=== PATIENT | male | born 1975 | race Caucasian/White ===

== ENCOUNTER → 2017-11-20 14:00 | Outpatient (CLI) | payer OTHER, SELFPAY | DX: Z23 Encounter for immunization (principal) | CPT/HCPCS: 90471; 90686 ==

== ENCOUNTER 2017-12-27 09:10 | Emergency (ER) | payer OTHER, SELFPAY ==
--- NOTE | 2017-12-27 09:11 | ED_ITS ---
HPI - General Adult General Chief complaint: Syncope Stated complaint: almost fainted / high blood pressure Time Seen by Provider: 12/27/17 09:11 Source: patient Mode of arrival: ambulatory Limitations: no limitations History of Present Illness HPI narrative: 42-year-old male sent over from clinic. 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 He denies any other symptoms at the time to include chest pain, palpitations, headache, vision changes, vertigo symptoms. He did state that at some point after the onset of the symptoms he did get some tingling and coolness in bilateral extremities. He states that except for his hands feeling cool all of his symptoms have completely resolved by the time he arrived here in the emergency department. Related Data Allergies Allergy/AdvReac Type Severity Reaction Status Date / Time No Known Drug Allergies Allergy Verified 12/27/17 09:35 Review of Systems Constitutional Denies fatigue, Denies fever(s) and Denies headache(s) Eyes Denies diplopia ENT Ears, Nose, Mouth, and Throat: Denies vertigo, Denies dizziness, Denies headache (s) and Reports disequilibrium Cardiovascular Denies chest pain, Denies syncope, Denies rapid heart rate, Denies irregular heart rhythm, Reports lightheadedness, Denies palpitations, Denies dyspnea and Denies slow heart rate Respiratory Denies dyspnea Gastrointestinal Gastrointestinal: Denies abdominal pain, Denies nausea and Denies vomiting Musculoskeletal Comments: Bilateral cool hands Integumentary/Breasts Denies lesions and Denies rash Neurologic Denies confusion, Denies vertigo, Denies dizziness, Denies syncope, Denies headache(s), Denies focal weakness, Denies convulsions and Reports disequilibrium Psychiatric Denies confusion Endocrine Denies fatigue and Denies palpitations PFSH Medical History Healthy adult (Acute) Surgical History No pertinent past surgical history (Acute) Social History Smoking Status: Never smoker Exam Initial Vital Signs Initial Vital Signs: Vital Signs Temperature 98.1 F 12/27/17 09:12 Pulse Rate 63 12/27/17 09:12 Respiratory Rate 18 12/27/17 09:12 Blood Pressure 159/86 H 12/27/17 09:12 Pulse Oximetry 99 12/27/17 09:12 Const General: cooperative, healthy appearing, comfortable, well developed, well groomed and No acute distress Orientation: alert and awake [facility] Head: normal to inspection and normocephalic Resp Effort & Inspection: normal respiratory effort Auscultation: clear to auscultation bilaterally Cardio Rate: regular rate Rhythm: regular rhythm Heart Sounds: no murmurs Pulses: radial pulses present GI Inspection: non-distended Palpation: soft Skin Lesions: no lesions Rashes: no rashes Neuro General: alert, awake and oriented x3 Cognition: normal cognition Speech: speech normal Gait: normal gait Extrem General: normal to inspection, capillary refill normal and No edema Psych Appearance: grossly normal and well kempt Course Orders Ordered: ED Orders 12/27/17 09:14 EKG-12 Lead Stat 12/27/17 09:58 Complete Blood Count AUTO DIFF Stat Comprehensive Metabolic Panel Stat Lipase Stat Discontinued Medications Sodium Chloride (Normal Saline 0.9%) 1,000 mls @ 1,000 mls/hr IV BOLUS ONE Stop: 12/27/17 10:28 Vital Signs - 8 hr 12/27/17 09:12 Temperature 98.1 F Pulse Rate 63 Respiratory Rate 18 Blood Pressure 159/86 H Pulse Oximetry 99 Medical Decision Making Lab Data Lab results reviewed: Yes I reviewed the patient's lab results. Result diagrams: 12/27/17 09:58 12/27/17 09:58 Lab Results 12/27/17 12/27/17 Range/Units 09:58 09:58 WBC 5.5 (4.5-11.0) X10^3/uL RBC 4.59 (4.5-5.9) X10^6/uL Hgb 14.3 (13.5-17.5) g/dL Hct 40.7 L (41-53) % MCV 88.9 (80-100) fL MCH 31.1 (26-34) PG MCHC 35.0 (30-36) % RDW 13.0 (11.6-14.8) % Plt Count 226 (150-400) X10^3/uL Neut % (Auto) 63.9 (50-75) % Lymph % (Auto) 22.8 L (25-40) % [place] % (Auto) 10.2 (3-14) % Eos % (Auto) 2.3 (2-4) % Baso % (Auto) 0.8 (0-2) % Neut # (Auto) 3500 (7244-0950) /uL Sodium 143 (137-145) mmol/L Potassium 4.0 (3.4-5.1) mmol/L Chloride 104 (98-107) mmol/L Carbon Dioxide 30 (22-32) mmol/L BUN 12 (9-20) mg/dL Creatinine 1.00 (0.66-1.25) mg/dL Estimated GFR > 60.0 (>60) mL/min BUN/Creatinine Ratio 12.0 (6-22) Glucose 93 (70-100) mg/dL Calcium 9.3 (8.4-10.2) mg/dL Total Bilirubin 0.5 (0.2-1.3) mg/dL AST 22 (17-59) IU/L ALT 31 (21-72) IU/L Alkaline Phosphatase 69 (38-126) U/L Total Protein 7.3 (6.3-8.2) g/dL Albumin 4.3 (3.5-5.0) g/dL Globulin 3.0 (1.7-4.1) g/dL Albumin/Globulin Ratio 1.4 (1.0-2.8) Lipase 70 (23-300) U/L ECG Data Attestation: I personally reviewed and interpreted this ECG as follows: Prior ECG tracings: not available for review Interpretation: sinus rhythm ventricular rate 88 normal axis Normal QRS normal QTC no ST T wave changes MDM Narrative Medical decision making narrative: patient with an improvement/ resolution of his symptoms since being here in the emergency department. His EKG is unremarkable. His labs are unremarkable. His blood pressure has returned to normal. Symptoms are consistent with vasovagal. have low suspicion for CVA/ TIA. Patient was standing at the time of the symptoms. Low suspicion for orthostatic hypotension. Offered patient fluids here in the emergency department however he stated that he would hydrate by mouth which is not unreasonable. Will hold on further workup for now. Patient given return precautions. Discharge Plan Departure Patient Disposition: Home Clinical Impression: Pre-syncope Instructions: DI for Dizziness-Nonvertigo Activity Restrictions/Additional Instructions: make sure you push fluids over the next day. You EKG was normal. Your labs are unremarkable. Return to the emergency department for any new or worsening symptoms
[2017-12-27 09:12] VITALS: BP 159/86; PULSE 63; RESP 18; TEMP 36.7; O2SAT 99; BMI 25.1
[2017-12-27 09:45] VITALS: BP 131/89; PULSE 75; RESP 16; O2SAT 100
[2017-12-27 10:05] VITALS: BP 125/79; PULSE 75; RESP 16; O2SAT 100
[2017-12-27 10:06] LABS: Add Manual Diff / Slide Review NO; Basophils Percent Auto 0.8 % (0-2); Eosinophils Percent Auto 2.3 % (2-4); Hematocrit 40.7 % (41-53); Hemoglobin 14.3 g/dL (13.5-17.5); Lymphocytes Percent Auto 22.8 % (25-40); Mean Corpuscular Hemoglobin 31.1 PG (26-34); Mean Corpuscular Volume 88.9 fL (80-100); Monocytes Percent Auto 10.2 % (3-14); Neutrophils Absolute Auto 3500 /uL (3000-5900); Neutrophils Percent Auto 63.9 % (50-75); Platelet Count 226 X10^3/uL (150-400); Red Blood Cell Count 4.59 X10^6/uL (4.5-5.9); White Blood Cell Count 5.5 X10^3/uL (4.5-11.0)
[2017-12-27 10:17] LABS: Alanine Aminotransferase 31 IU/L (21-72); Albumin 4.3 g/dL (3.5-5.0); Albumin Globulin Ratio 1.4 (1.0-2.8); Alkaline Phosphatase 69 U/L (38-126); Aspartate Aminotransferase 22 IU/L (17-59); Bilirubin Total 0.5 mg/dL (0.2-1.3); Blood Urea Nitrogen 12 mg/dL (9-20); Calcium 9.3 mg/dL (8.4-10.2); Carbon Dioxide 30 mmol/L (22-32); Chloride 104 mmol/L (98-107); Estimated Glomerular Filt Rate > 60.0 mL/min (>60); Glucose 93 mg/dL (70-100); HEMOLYSIS < 15 (0-50); Lipase 70 U/L (23-300); Sodium 143 mmol/L (137-145); Total Protein 7.3 g/dL (6.3-8.2)
== END 2017-12-27 10:41 | disposition home or self-care (01) ==
PROVIDERS: Emergency Provider Emergency Medicine
DX: R55 Syncope and collapse (principal)
CPT/HCPCS: 36415; 80053; 83690; 85025; 93005; 93010; 99282; 99284

== ENCOUNTER 2018-02-01 22:43 | Emergency (ER) | payer OTHER, SELFPAY ==
[2018-02-01 22:48] VITALS: BP 144/81; PULSE 92; RESP 20; TEMP 36.6; O2SAT 100
--- NOTE | 2018-02-01 22:58 | PC.NURSE ---
pt c/o left arm numbness and tingling intermittent for the past 3 days. today sensation was concerning because it included tightness to left neck and chest. tightness radiated into back.
--- NOTE | 2018-02-01 23:17 | DI.CT.S_ITS ---
PROCEDURE: CT ANGIO CHEST ABDOMEN INDICATIONS: near syncope, fullness neck, arm numb, back pain TECHNIQUE: Precontrast 5 mm thick sections acquired from the lung apices to the iliac crests. After the administration of intravenous contrast, 2.5 mm thick sections again acquired from the lung apices to the iliac crests. 10 mm maximum intensity projection (MIP) oblique sagittal and coronal reformats were then acquired. For radiation dose reduction, the following was used: automated exposure control. COMPARISON: None. FINDINGS: Image quality: Excellent. AORTA: No evidence of aortic dissection, aneurysm, nor stenosis. CHEST: Lungs and pleura: No acute airspace opacities. No pleural effusions or pneumothorax. Central and peripheral airways are patent and normal in caliber. Mediastinum: Heart size is normal. No pericardial effusion. No mediastinal or hilar adenopathy by size criteria. Central pulmonary arteries are normal in size. Esophagus is normal in caliber. No hiatal hernias. Bones and chest wall: No axillary adenopathy by size criteria. Thyroid gland is within normal limits. No suspicious bony lesions. No vertebral body compression fractures. ABDOMEN: Vasculature: Celiac trunk and mesenteric arteries are patent. Renal arteries are also patent. Solid organs: Liver is normal in size and enhancement. Gallbladder is partially contracted. Biliary system is non dilated. Pancreas enhances normally. Spleen is normal in size and enhancement. No adrenal nodules. Both kidneys are normal in size and enhancement, without hydronephrosis. Peritoneum and bowel: No free fluid or air. Bowel loops are normal in caliber and wall thickness. Nodes and vessels: No retroperitoneal or mesenteric adenopathy by size criteria. Inferior vena cava is normal in morphology. Bones: No suspicious bony lesions. No vertebral body compression fractures. Miscellaneous: No ventral hernias. IMPRESSION: No acute process and no evidence of aortic dissection, nor aneurysm. Concordant with preliminary interpretation. Dictated by: Mikey Cano M.D. on 02/02/2018 at 8:23 Approved by: Mikey Cano M.D. on 02/02/2018 at 8:25
--- NOTE | 2018-02-01 23:20 | ED.EXTPRO ---
HPI - Extremity Problem General Chief complaint: Extremity Problem,Nontraumatic Stated complaint: LEFT ARM NUMBNESS Time Seen by Provider: 02/01/18 23:16 Source: patient Mode of arrival: ambulatory Limitations: no limitations History of Present Illness HPI Narrative: 42-year-old nonsmoker with no significant medical history presents to the emergency department with a constellation of symptoms which have become increasingly concerning. About 6 weeks ago the patient started noticing some discomfort in his left axilla followed by some radiation of numbness and tingling down his left arm to his finger tips his 4th and 5th fingers. He denies any specific injury and reports no weakness. Additionally the patient has felt some fullness in his neck and throat and thinks may be on occasion food has become stuck but he has no ongoing or chronic trouble and denies any trouble handling his secretions. Additionally the patient was seen and evaluated in our emergency department a few weeks ago for a near syncopal episode which was unprovoked. Finally the patient has had some discomfort in his left posterior chest in the absence shortness of breath, fever, chills, cough. MD Complaint: other Onset (ago): week(s) Pain Consistency: intermittent Location: left Radiation: distal Relieving factors: nothing Exacerbating factors: nothing Associated symptoms: other Related Data Allergies Allergy/AdvReac Type Severity Reaction Status Date / Time No Known Drug Allergies Allergy Verified 12/27/17 09:35 Review of Systems Review of Systems All systems reviewed & are unremarkable except as noted in HPI and below Constitutional Denies chills, Denies fever(s), Denies lethargy and Denies weakness Eyes Denies change in vision, Denies eye discharge, Denies irritation and Denies loss of vision ENT Ears, Nose, Mouth, and Throat: Denies change in voice, Denies neck pain and Denies sore throat Cardiovascular Reports syncope, Denies irregular heart rhythm, Denies lightheadedness, Denies palpitations, Denies dyspnea, Denies dyspnea on exertion and Denies orthopnea Comments: Posterior chest pain Respiratory Denies cough, Denies dyspnea, Denies dyspnea on exertion and Denies wheezing Gastrointestinal Gastrointestinal: Denies abdominal pain, Denies change in bowel habits, Denies diarrhea, Denies nausea and Denies vomiting Genitourinary Denies hematuria, Denies flank pain, Denies urinary incontinence and Denies urinary urgency Musculoskeletal Denies neck pain and Reports tingling Integumentary/Breasts Denies pruritus, Denies erythema, Denies rash and Denies wounds Neurologic Denies confusion, Reports syncope, Denies loss of vision, Reports tingling and Denies weakness Psychiatric Denies anxiety, Denies confusion, Denies depression, Denies homicidal ideation and Denies suicidal ideation Endocrine Denies palpitations Hematologic/Lymphatic Denies easy bruising Allergic/Immunologic Denies wheezing [facility] Medical History Healthy adult (Acute) Surgical History No pertinent past surgical history (Acute) Social History Smoking Status: Never smoker Exam Narrative Exam Narrative: GENERAL: This is a well-nourished, well-developed patient, in mild distress. HEAD: Atraumatic. Normocephalic. No temporal or scalp tenderness. EYES: Pupils equal round and reactive. Extraocular motions intact. No scleral icterus. No injection or drainage. ENT: Nose without bleeding, purulent drainage or septal hematoma. Throat without erythema, tonsillar hypertrophy or exudate. Uvula midline. Airway patent. NECK: Trachea midline. No JVD or lymphadenopathy. Supple, nontender, no meningeal signs. CARDIOVASCULAR: Regular rate and rhythm without murmurs, gallops, or rubs. RESPIRATORY: Clear to auscultation. Breath sounds equal bilaterally. No wheezes, rales, or rhonchi. GASTROINTESTINAL: Abdomen soft, non-tender, nondistended. No hepato-splenomegaly, or palpable masses. No guarding. EXTREMITIES: No clubbing, cyanosis, or edema. No joint tenderness, effusion, or edema noted. BACK: Nontender without deformity or crepitance. No flank tenderness. NEURO: AOx3. SKIN: No rash or erythema. Initial Vital Signs Initial Vital Signs: Vital Signs Temperature 97.8 F 02/01/18 22:48 Pulse Rate 92 H 02/01/18 22:48 Respiratory Rate 20 02/01/18 22:48 Blood Pressure 144/81 H 02/01/18 22:48 Pulse Oximetry 100 02/01/18 22:48 Course Orders Ordered: ED Orders 02/01/18 22:50 Basic Metabolic Panel Stat Complete Blood Count AUTO DIFF Stat Partial Thromboplastin Time Stat Prothrombin Time INR Stat Troponin I Stat 02/01/18 23:17 CT angio chest abdomen Stat Vital Signs - 8 hr 02/01/18 22:48 02/02/18 00:19 02/02/18 00:49 Temperature 97.8 F Pulse Rate 92 H 78 75 Respiratory Rate 20 15 18 Blood Pressure 144/81 H 134/86 Blood Pressure [Left Arm] 134/86 Pulse Oximetry 100 97 99 MDM - Extremity (Nontraumatic) Lab Data Result diagrams: 02/01/18 22:50 02/01/18 22:50 Lab Results 02/01/18 02/01/18 02/01/18 Range/Units 22:50 22:50 22:50 WBC 7.0 (4.5-11.0) X10^3/uL RBC 4.65 (4.5-5.9) X10^6/uL Hgb 14.3 (13.5-17.5) g/dL Hct 41.4 (41-53) % MCV 89.1 (80-100) fL MCH 30.8 (26-34) PG MCHC 34.6 (30-36) % RDW 12.9 (11.6-14.8) % Plt Count 253 (150-400) X10^3/uL Neut % (Auto) 53.5 (50-75) % Lymph % (Auto) 32.1 (25-40) % [place] % (Auto) 10.3 (3-14) % Eos % (Auto) 3.3 (2-4) % Baso % (Auto) 0.8 (0-2) % Neut # (Auto) 3700 (7218-8628) /uL PT 11.7 (10.1-12.7) SECONDS INR 1.1 (0.9-1.3) APTT 32 (26.4-36.2) SECONDS Sodium 143 (137-145) mmol/L Potassium 3.9 (3.4-5.1) mmol/L Chloride 105 (98-107) mmol/L Carbon Dioxide 26 (22-32) mmol/L BUN 15 (9-20) mg/dL Creatinine 1.00 (0.66-1.25) mg/dL Estimated GFR > 60.0 (>60) mL/min BUN/Creatinine Ratio 15.0 (6-22) Glucose 103 H (70-100) mg/dL Calcium 9.2 (8.4-10.2) mg/dL Troponin I < 0.012 (0.01-0.034) ng/mL Imaging Data CT scan - chest: Radiologist's impression: No dissection, mass, or other significant findings MDM Narrative Medical decision making narrative: Healthy male presents with various signs and symptoms such as near-syncope, chest/back pain, discomfort in his throat as well as radiation down his arm which raise concern for vascular abnormality such is dissection or steal syndrome, other mass occupying lesion in the mediastinum, or interfering with great vessels of the chest. CT angiogram was very reassuring as is the patient's near normal physical exam. Patient is had questions answered to his apparent satisfaction and is happy to pursue ongoing symptoms an outpatient basis Discharge Plan Departure Patient Disposition: Home Clinical Impression: Arm paresthesia, left Discharge Date/Time: 02/02/18 00:42 Interventions: ED Discharge Assessment Last Done: 02/02/18 00:49 Instructions: DI for Numbness/tingling Activity Restrictions/Additional Instructions: *You have been diagnosed with [ left arm paresthesia ] *What to do: *Continue take medications as directed *Follow up with your primary care provider in 2-3 days, call for an appointment. Let them know you were seen in the Emergency Department and that we ask that you be seen in follow up *Return to ER if you should have any new, worsening or concerning symptoms, such as [increasing numbness, tingling, pain or other bothersome symptoms ]
[2018-02-01 23:28] LABS: Add Manual Diff / Slide Review NO; Basophils Percent Auto 0.8 % (0-2); Eosinophils Percent Auto 3.3 % (2-4); Hematocrit 41.4 % (41-53); Hemoglobin 14.3 g/dL (13.5-17.5); INR 1.1 (0.9-1.3); Lymphocytes Percent Auto 32.1 % (25-40); Mean Corpuscular HGB Conc 34.6 % (30-36); Mean Corpuscular Hemoglobin 30.8 PG (26-34); Mean Corpuscular Volume 89.1 fL (80-100); Monocytes Percent Auto 10.3 % (3-14); Neutrophils Absolute Auto 3700 /uL (3000-5900); Neutrophils Percent Auto 53.5 % (50-75); Platelet Count 253 X10^3/uL (150-400); Prothrombin Time 11.7 SECONDS (10.1-12.7); Red Blood Cell Count 4.65 X10^6/uL (4.5-5.9); Red Cell Distribution Width 12.9 % (11.6-14.8)
[2018-02-01 23:31] LABS: PTT Partial Thromboplastin Tim 32 SECONDS (26.4-36.2)
[2018-02-01 23:32] LABS: Blood Urea Nitrogen 15 mg/dL (9-20); Calcium 9.2 mg/dL (8.4-10.2); Carbon Dioxide 26 mmol/L (22-32); Chloride 105 mmol/L (98-107); Estimated Glomerular Filt Rate > 60.0 mL/min (>60); Glucose 103 mg/dL (70-100); HEMOLYSIS < 15 (0-50); Potassium 3.9 mmol/L (3.4-5.1); Sodium 143 mmol/L (137-145)
[2018-02-01 23:45] LABS: Troponin I < 0.012 ng/mL (0.01-0.034)
[2018-02-02 00:19] VITALS: BP 134/86; PULSE 78; RESP 15; O2SAT 97
[2018-02-02 00:49] VITALS: BP 134/86; PULSE 75; RESP 18; O2SAT 99
--- NOTE | 2018-02-02 03:47 | ED_ITS ---
HPI - Extremity Problem General Chief complaint: Extremity Problem,Nontraumatic Stated complaint: LEFT ARM NUMBNESS Time Seen by Provider: 02/01/18 23:16 Source: patient Mode of arrival: ambulatory Limitations: no limitations History of Present Illness HPI Narrative: 42-year-old nonsmoker with no significant medical history presents to the emergency department with a constellation of symptoms which have become increasingly concerning. About 6 weeks ago the patient started noticing some discomfort in his left axilla followed by some radiation of numbness and tingling down his left arm to his finger tips his 4th and 5th fingers. He denies any specific injury and reports no weakness. Additionally the patient has felt some fullness in his neck and throat and thinks may be on occasion food has become stuck but he has no ongoing or chronic trouble and denies any trouble handling his secretions. Additionally the patient was seen and evaluated in our emergency department a few weeks ago for a near syncopal episode which was unprovoked. Finally the patient has had some discomfort in his left posterior chest in the absence shortness of breath, fever, chills, cough. MD Complaint: other Onset (ago): week(s) Pain Consistency: intermittent Location: left Radiation: distal Relieving factors: nothing Exacerbating factors: nothing Associated symptoms: other Related Data Allergies Allergy/AdvReac Type Severity Reaction Status Date / Time No Known Drug Allergies Allergy Verified 12/27/17 09:35 Review of Systems Review of Systems All systems reviewed & are unremarkable except as noted in HPI and below Constitutional Denies chills, Denies fever(s), Denies lethargy and Denies weakness Eyes Denies change in vision, Denies eye discharge, Denies irritation and Denies loss of vision ENT Ears, Nose, Mouth, and Throat: Denies change in voice, Denies neck pain and Denies sore throat Cardiovascular Reports syncope, Denies irregular heart rhythm, Denies lightheadedness, Denies palpitations, Denies dyspnea, Denies dyspnea on exertion and Denies orthopnea Comments: Posterior chest pain Respiratory Denies cough, Denies dyspnea, Denies dyspnea on exertion and Denies wheezing Gastrointestinal Gastrointestinal: Denies abdominal pain, Denies change in bowel habits, Denies diarrhea, Denies nausea and Denies vomiting Genitourinary Denies hematuria, Denies flank pain, Denies urinary incontinence and Denies urinary urgency Musculoskeletal Denies neck pain and Reports tingling Integumentary/Breasts Denies pruritus, Denies erythema, Denies rash and Denies wounds Neurologic Denies confusion, Reports syncope, Denies loss of vision, Reports tingling and Denies weakness Psychiatric Denies anxiety, Denies confusion, Denies depression, Denies homicidal ideation and Denies suicidal ideation Endocrine Denies palpitations Hematologic/Lymphatic Denies easy bruising Allergic/Immunologic Denies wheezing [facility] Medical History Healthy adult (Acute) Surgical History No pertinent past surgical history (Acute) Social History Smoking Status: Never smoker Exam Narrative Exam Narrative: GENERAL: This is a well-nourished, well-developed patient, in mild distress. HEAD: Atraumatic. Normocephalic. No temporal or scalp tenderness. EYES: Pupils equal round and reactive. Extraocular motions intact. No scleral icterus. No injection or drainage. ENT: Nose without bleeding, purulent drainage or septal hematoma. Throat without erythema, tonsillar hypertrophy or exudate. Uvula midline. Airway patent. NECK: Trachea midline. No JVD or lymphadenopathy. Supple, nontender, no meningeal signs. CARDIOVASCULAR: Regular rate and rhythm without murmurs, gallops, or rubs. RESPIRATORY: Clear to auscultation. Breath sounds equal bilaterally. No wheezes , rales, or rhonchi. GASTROINTESTINAL: Abdomen soft, non-tender, nondistended. No hepato-splenomegaly , or palpable masses. No guarding. EXTREMITIES: No clubbing, cyanosis, or edema. No joint tenderness, effusion, or edema noted. BACK: Nontender without deformity or crepitance. No flank tenderness. NEURO: AOx3. SKIN: No rash or erythema. Initial Vital Signs Initial Vital Signs: Vital Signs Temperature 97.8 F 02/01/18 22:48 Pulse Rate 92 H 02/01/18 22:48 Respiratory Rate 20 02/01/18 22:48 Blood Pressure 144/81 H 02/01/18 22:48 Pulse Oximetry 100 02/01/18 22:48 Course Orders Ordered: ED Orders 02/01/18 22:50 Basic Metabolic Panel Stat Complete Blood Count AUTO DIFF Stat Partial Thromboplastin Time Stat Prothrombin Time INR Stat Troponin I Stat 02/01/18 23:17 CT angio chest abdomen Stat Vital Signs - 8 hr 02/01/18 22:48 02/02/18 00:19 02/02/18 00:49 Temperature 97.8 F Pulse Rate 92 H 78 75 Respiratory Rate 20 15 18 Blood Pressure 144/81 H 134/86 Blood Pressure [Left Arm] 134/86 Pulse Oximetry 100 97 99 MDM - Extremity (Nontraumatic) Lab Data Result diagrams: 02/01/18 22:50 02/01/18 22:50 Lab Results 02/01/18 02/01/18 02/01/18 Range/Units 22:50 22:50 22:50 WBC 7.0 (4.5-11.0) X10^3/uL RBC 4.65 (4.5-5.9) X10^6/uL Hgb 14.3 (13.5-17.5) g/dL Hct 41.4 (41-53) % MCV 89.1 (80-100) fL MCH 30.8 (26-34) PG MCHC 34.6 (30-36) % RDW 12.9 (11.6-14.8) % Plt Count 253 (150-400) X10^3/uL Neut % (Auto) 53.5 (50-75) % Lymph % (Auto) 32.1 (25-40) % [place] % (Auto) 10.3 (3-14) % Eos % (Auto) 3.3 (2-4) % Baso % (Auto) 0.8 (0-2) % Neut # (Auto) 3700 (6167-9144) /uL PT 11.7 (10.1-12.7) SECONDS INR 1.1 (0.9-1.3) APTT 32 (26.4-36.2) SECONDS Sodium 143 (137-145) mmol/L Potassium 3.9 (3.4-5.1) mmol/L Chloride 105 (98-107) mmol/L Carbon Dioxide 26 (22-32) mmol/L BUN 15 (9-20) mg/dL Creatinine 1.00 (0.66-1.25) mg/dL Estimated GFR > 60.0 (>60) mL/min BUN/Creatinine Ratio 15.0 (6-22) Glucose 103 H (70-100) mg/dL Calcium 9.2 (8.4-10.2) mg/dL Troponin I < 0.012 (0.01-0.034) ng/mL Imaging Data CT scan - chest: Radiologist's impression: No dissection, mass, or other significant findings MDM Narrative Medical decision making narrative: Healthy male presents with various signs and symptoms such as near-syncope, chest/back pain, discomfort in his throat as well as radiation down his arm which raise concern for vascular abnormality such is dissection or steal syndrome, other mass occupying lesion in the mediastinum, or interfering with great vessels of the chest. CT angiogram was very reassuring as is the patient's near normal physical exam. Patient is had questions answered to his apparent satisfaction and is happy to pursue ongoing symptoms an outpatient basis Discharge Plan Departure Patient Disposition: Home Clinical Impression: Arm paresthesia, left Discharge Date/Time: 02/02/18 00:42 Interventions: ED Discharge Assessment Last Done: 02/02/18 00:49 Instructions: DI for Numbness/tingling Activity Restrictions/Additional Instructions: *You have been diagnosed with [ left arm paresthesia ] *What to do: *Continue take medications as directed *Follow up with your primary care provider in 2-3 days, call for an appointment. Let them know you were seen in the Emergency Department and that we ask that you be seen in follow up *Return to ER if you should have any new, worsening or concerning symptoms , such as [increasing numbness, tingling, pain or other bothersome symptoms ]
== END 2018-02-02 00:42 | disposition home or self-care (01) ==
PROVIDERS: Emergency Provider Emergency Medicine
DX: R20.2 Paresthesia of skin (principal)
CPT/HCPCS: 36591; 71275; 74175; 80048; 84484; 85025; 85610; 85730; 93005; 93041; 99283; 99285; Q9967

== ENCOUNTER → 2018-02-04 12:05 | Outpatient (CLI) | payer OTHER, SELFPAY ==
--- NOTE | 2018-02-04 12:06 | DI.RAD.S_ITS ---
PROCEDURE: XR HAND RT MIN 3V INDICATIONS: fall with possible foreign body in 5th MCP TECHNIQUE: 3 views of the hand(s) acquired. COMPARISON: None. FINDINGS: Bones: No fractures or dislocations. Carpal bones are normally aligned. No suspicious bony lesions. Soft tissues: No suspicious soft tissue calcifications. IMPRESSION: No fracture or foreign body seen. Dictated by: Jeremy Figueroa M.D. on 02/04/2018 at 13:15 Approved by: eJremy Figueroa M.D. on 02/04/2018 at 13:24
== END ==
PROVIDERS: Visit Provider Family Medicine
DX: M79.641 Pain in right hand (principal)
CPT/HCPCS: 73130

== ENCOUNTER 2018-04-06 15:43 | Observation (INO) | payer OTHER, SELFPAY ==
[2018-04-06 15:54] VITALS: BP 148/85; PULSE 90; RESP 13; TEMP 36.2; O2SAT 100
--- NOTE | 2018-04-06 15:55 | ED.ABDPAIN ---
HPI - Abdominal Pain General Chief Complaint: Abdominal Pain Stated Complaint: rt lower quadrant abdominal pain and nausea Time Seen by Provider: 04/06/18 15:55 Source: patient Mode of arrival: ambulatory Limitations: no limitations History of Present Illness HPI narrative: Otherwise healthy 42-year-old male here for evaluation of less than 12 hr of right lower quadrant abdominal pain. Some nausea. No change with urination. No burning with urination. No change of bowel movement. No fevers. Related Data Allergies Allergy/AdvReac Type Severity Reaction Status Date / Time No Known Drug Allergies Allergy Verified 12/27/17 09:35 Review of Systems Constitutional Denies fever(s) Cardiovascular Denies chest pain and Denies dyspnea Respiratory Denies dyspnea Gastrointestinal Gastrointestinal: Reports abdominal pain, Denies change in stool character, Denies diarrhea, Reports nausea and Denies vomiting Genitourinary Denies dysuria Musculoskeletal Denies myalgias and Denies arthralgias Integumentary/Breasts Denies rash Hematologic/Lymphatic Comments: Not on anticoagulation PFSH Social History Smoking Status: Never smoker Exam Initial Vital Signs Initial Vital Signs: Vital Signs Temperature 97.2 F L 04/06/18 15:54 Pulse Rate 90 04/06/18 15:54 Respiratory Rate 13 04/06/18 15:54 Blood Pressure 148/85 H 04/06/18 15:54 Pulse Oximetry 100 04/06/18 15:54 Const General: cooperative, healthy appearing, well developed and well groomed Orientation: alert, awake and oriented x3 Resp Effort & Inspection: normal respiratory effort Auscultation: clear to auscultation bilaterally Cardio Rate: regular rate Rhythm: regular rhythm GI Inspection: non-distended Palpation: soft, No firm and tender (Right lower quadrant with some guarding and rebound) Skin Lesions: no lesions Rashes: no rashes Neuro General: alert, awake and oriented x3 Extrem General: normal to inspection and capillary refill normal Psych Appearance: grossly normal and well kempt Course Orders Ordered: ED Orders 04/06/18 16:10 CT abdomen pelvis w con Stat 04/06/18 16:15 Basic Metabolic Panel Stat Complete Blood Count AUTO DIFF Stat Discontinued Medications Sodium Chloride (Normal Saline 0.9%) 1,000 mls @ 1,000 mls/hr IV BOLUS ONE Stop: 04/06/18 17:08 Last Infusion: 04/06/18 18:16 Dose: 0 mls/hr Admin: 04/06/18 16:40 Dose: 1,000 mls/hr Morphine Sulfate (Morphine) 4 mg IV NOW ONE Stop: 04/06/18 18:10 Last Admin: 04/06/18 18:17 Dose: 4 mg Ondansetron HCl (Zofran) 4 mg IV NOW ONE Stop: 04/06/18 18:10 Last Admin: 04/06/18 18:17 Dose: 4 mg Vital Signs - 8 hr 04/06/18 15:54 04/06/18 18:00 Temperature 97.2 F L Pulse Rate 90 73 Respiratory Rate 13 Blood Pressure 148/85 H Blood Pressure [Right Arm] 140/80 Pulse Oximetry 100 100 MDM - Abdominal Pain Lab Data Attestation: I reviewed the patient's lab results. Result diagrams: 04/06/18 16:15 04/06/18 16:15 Lab Results 04/06/18 04/06/18 Range/Units 16:15 16:15 WBC 14.7 H (4.5-11.0) X10^3/uL RBC 4.71 (4.5-5.9) X10^6/uL Hgb 14.4 (13.5-17.5) g/dL Hct 41.6 (41-53) % MCV 88.3 (80-100) fL MCH 30.7 (26-34) PG MCHC 34.7 (30-36) % RDW 13.0 (11.6-14.8) % Plt Count 267 (150-400) X10^3/uL Neut % (Auto) 84.8 H (50-75) % Lymph % (Auto) 7.5 L (25-40) % [place] % (Auto) 6.5 (3-14) % Eos % (Auto) 0.7 L (2-4) % Baso % (Auto) 0.5 (0-2) % Neut # (Auto) 49074 H (7599-3780) /uL Lymph # (Auto) 1100 (7694-8796) /uL [place] # (Auto) 1000 H (0-900) /uL Eos # (Auto) 100 (0-450) /uL Baso # (Auto) 100 (0-100) /uL Sodium 139 (137-145) mmol/L Potassium 3.7 (3.4-5.1) mmol/L Chloride 101 (98-107) mmol/L Carbon Dioxide 25 (22-32) mmol/L BUN 11 (9-20) mg/dL Creatinine 0.90 (0.66-1.25) mg/dL Estimated GFR > 60.0 (>60) mL/min BUN/Creatinine Ratio 12.2 (6-22) Glucose 97 (70-100) mg/dL Calcium 9.4 (8.4-10.2) mg/dL Point of care testing: Urine Dip Bedside Urine Glucose Negative Bedside Urine Bilirubin - Negative Bedside Urine Ketone +/- 5 Urine Specific [place] 1.025 Bedside Urine Occult Blood - Negative Bedside Urine pH 5.5 Bedside Urine Protein - Negative Bedside Urine Urobilinogen - Negative Bedside Urine Nitrite - Negative Bedside Urine Leukocytes - Negative Esterase Imaging Data CT scan - abdomen: Radiologist's impression: OCEDURE: CT ABDOMEN PELVIS W CON INDICATIONS: right-sided abdominal pain TECHNIQUE: After the administration of intravenous contrast, 5 mm thick sections acquired from the diaphragm to the symphysis. 5 mm coronal and sagittal reformats were acquired. For radiation dose reduction, the following was used: automated exposure control, adjustment of mA and/or kV according to patient size. COMPARISON: None. FINDINGS: Image quality: Excellent. ABDOMEN: Lung bases: Lung bases are clear. Heart size is normal. Solid organs: Liver is normal in size and enhancement. Small subcentimeter anterior margin right hepatic lobe hypodensity is too small to characterize but likely represents a cyst versus hemangioma. Gallbladder is normal.. Biliary system is non dilated. Pancreas enhances normally. Spleen is normal in size and enhancement. No adrenal nodules. Kidneys demonstrate normal size and enhancement, without hydronephrosis. Small subcentimeter right renal hypodensity is too small to characterize but likely represents a cyst. Peritoneum and bowel: There is mild circumferential bowel wall thickening of the entire colon with no significant adjacent stranding. There is however a segment of more prominent circumferential proximal ascending colonic wall thickening near the terminal ileum and cecum with mild inflammatory stranding. There are a few small right sided diverticula in the vicinity. The visualized small bowel loops demonstrate normal wall thickness and caliber. No free fluid or air. Nodes and vessels: No retroperitoneal or mesenteric adenopathy by size criteria. Aorta and inferior vena cava are normal in size. Miscellaneous: No ventral hernias. PELVIS: Genitourinary: Bladder wall thickness is normal. Miscellaneous: No inguinal hernias or adenopathy. Bones: No suspicious bony lesions. No acute vertebral body compression fractures. IMPRESSION: Mild circumferential wall thickening of the entire colon likely sequela of chronic inflammatory changes such as inflammatory bowel disease or chronic colitis. However, there is a short segment of prominent circumferential wall thickening and mild inflammatory stranding of the proximal ascending colon/cecum in the region of a few scant right-sided diverticula. Findings likely represent acute diverticulitis superimposed on chronic changes of inflammatory bowel disease. No free air or denies fluid collection. No other acute abnormalities identified. Dictated by: Deandre Hernandez M.D. on 04/06/2018 at 17:28 Approved by: Deandre Hernandez M.D. on 04/06/2018 at 17:41 [facility] Narrative Medical decision making narrative: 42-year-old male with right lower quadrant abdominal pain does have a leukocytosis. CT scan does not definitively rule in or rule out appendicitis however there is some concern about a pancolitis. Given his physical exam I contacted Dr. Zuniga with General surgery who evaluated the patient here in the emergency department. He recommended admitting the patient for fluid hydration and IV antibiotics and if his symptoms did not improve taking him to the OR tomorrow morning. Patient is aware of the decision to admit and is agreeable. Discharge Plan Departure Patient Disposition: Admitted as Observation Clinical Impression: Abdominal pain, Colitis Admit Date/Time: 04/06/18 18:48 Admit Provider: Collin Zuniga
--- NOTE | 2018-04-06 16:10 | DI.CT.S_ITS ---
PROCEDURE: CT ABDOMEN PELVIS W CON INDICATIONS: right-sided abdominal pain TECHNIQUE: After the administration of intravenous contrast, 5 mm thick sections acquired from the diaphragm to the symphysis. 5 mm coronal and sagittal reformats were acquired. For radiation dose reduction, the following was used: automated exposure control, adjustment of mA and/or kV according to patient size. COMPARISON: None. FINDINGS: Image quality: Excellent. ABDOMEN: Lung bases: Lung bases are clear. Heart size is normal. Solid organs: Liver is normal in size and enhancement. Small subcentimeter anterior margin right hepatic lobe hypodensity is too small to characterize but likely represents a cyst versus hemangioma. Gallbladder is normal.. Biliary system is non dilated. Pancreas enhances normally. Spleen is normal in size and enhancement. No adrenal nodules. Kidneys demonstrate normal size and enhancement, without hydronephrosis. Small subcentimeter right renal hypodensity is too small to characterize but likely represents a cyst. Peritoneum and bowel: There is mild circumferential bowel wall thickening of the entire colon with no significant adjacent stranding. There is however a segment of more prominent circumferential proximal ascending colonic wall thickening near the terminal ileum and cecum with mild inflammatory stranding. There are a few small right sided diverticula in the vicinity. The visualized small bowel loops demonstrate normal wall thickness and caliber. No free fluid or air. Nodes and vessels: No retroperitoneal or mesenteric adenopathy by size criteria. Aorta and inferior vena cava are normal in size. Miscellaneous: No ventral hernias. PELVIS: Genitourinary: Bladder wall thickness is normal. Miscellaneous: No inguinal hernias or adenopathy. Bones: No suspicious bony lesions. No acute vertebral body compression fractures. IMPRESSION: Mild circumferential wall thickening of the entire colon likely sequela of chronic inflammatory changes such as inflammatory bowel disease or chronic colitis. However, there is a short segment of prominent circumferential wall thickening and mild inflammatory stranding of the proximal ascending colon/cecum in the region of a few scant right-sided diverticula. Findings likely represent acute diverticulitis superimposed on chronic changes of inflammatory bowel disease. No free air or denies fluid collection. No other acute abnormalities identified. Dictated by: Deandre Hernandez M.D. on 04/06/2018 at 17:28 Approved by: Deandre Hernandez M.D. on 04/06/2018 at 17:41
[2018-04-06 16:25] LABS: Add Manual Diff / Slide Review NO; Basophils Absolute Auto 100 /uL (0-100); Basophils Percent Auto 0.5 % (0-2); Eosinophils Absolute Auto 100 /uL (0-450); Eosinophils Percent Auto 0.7 % (2-4); Hematocrit 41.6 % (41-53); Hemoglobin 14.4 g/dL (13.5-17.5); Lymphocytes Absolute Auto 1100 /uL (1100-4500); Lymphocytes Percent Auto 7.5 % (25-40); Mean Corpuscular HGB Conc 34.7 % (30-36); Mean Corpuscular Hemoglobin 30.7 PG (26-34); Mean Corpuscular Volume 88.3 fL (80-100); Monocytes Absolute Auto 1000 /uL (0-900); Monocytes Percent Auto 6.5 % (3-14); Neutrophils Absolute Auto 12500 /uL (1500-7000); Neutrophils Percent Auto 84.8 % (50-75); Platelet Count 267 X10^3/uL (150-400); Red Blood Cell Count 4.71 X10^6/uL (4.5-5.9); White Blood Cell Count 14.7 X10^3/uL (4.5-11.0)
[2018-04-06 16:35] LABS: BUN Creatinine Ratio 12.2 (6-22); Blood Urea Nitrogen 11 mg/dL (9-20); Calcium 9.4 mg/dL (8.4-10.2); Carbon Dioxide 25 mmol/L (22-32); Chloride 101 mmol/L (98-107); Estimated Glomerular Filt Rate > 60.0 mL/min (>60); Glucose 97 mg/dL (70-100); HEMOLYSIS 26 (0-50); Potassium 3.7 mmol/L (3.4-5.1); Sodium 139 mmol/L (137-145)
[2018-04-06] MEDS: SODIUM CHLORIDE 0.9% 1,000 ML 1000 ML IV (16:40)
[2018-04-06 18:00] VITALS: BP 140/80; PULSE 73; O2SAT 100
[2018-04-06] MEDS: MORPHINE 4 MG/ML INJ IV (18:17)
[2018-04-06] MEDS: ONDANSETRON 4 MG/2 ML INJ IV (18:17)
[2018-04-06 19:05] VITALS: BP 149/86; PULSE 89; RESP 20; TEMP 37.3; O2SAT 100
[2018-04-06 19:10] VITALS: BMI 25.7
--- NOTE | 2018-04-06 19:12 | P.HP_ITS ---
History of Present Illness Date Patient Seen: 04/06/18 Time Patient Seen: 19:07 Chief complaint: rt lower quadrant abdominal pain and nausea Narrative: 42-year-old otherwise healthy male who was at work this morning in his usual state of health and subsequently began to feel some vague crampy abdominal pain. He subsequently became mildly nauseated but did not vomit. He travels home at approximately 10:00 a.m. this morning after work with the above symptoms slowly worsening. States that he had some mild chills at that time but no subjective fever. He had 1 episode of dry heaves after arriving home but no vomiting. He has had none since. He had eaten 1 bag of potato chips at work and since that time has only consumed a little bit of water. He is not particularly hungry. Because he was having some chills and progressive abdominal pain he took a warm bath with little relief. He tried to take a brief nap but noticed that the abdominal pain continued to progress in severity. Pain began near the periumbilical region but became much more sharp and then radiated to the right lower quadrant where it has been present since that time. Pain is exacerbated with ambulation or other activity. He did drive himself to the emergency department earlier this afternoon given the severity of his pain, and informs me that the drive was quite difficult due to exacerbation of his right lower quadrant abdominal pain. He has never had similar symptoms in the past. He denies any recent change in his bowel habits. No diarrhea although his stool earlier today was somewhat soft. Nevertheless he is not passing flatus all this afternoon. No melena, hematochezia, or bright red blood per rectum. No pain with defecation earlier today, but the bowel movement did not alleviate any of his abdominal pain. He has had no dysuria or hematuria. Patient History Medical History Healthy adult (Acute) Surgical History No pertinent past surgical history (Acute) Family & Social History Family History: Reviewed 04/06/18 by Collin Zuniga MD Safety & Behavioral: Feels Safe in Current Yes Environment Been Physically Hurt or No Threatened By a Person Tobacco & Substance use: Smoking Status Never smoker alcohol intake frequency 0-2 drinks per day Substance Use Type does not use Meds Allergies Allergy/AdvReac Type Severity Reaction Status Date / Time No Known Drug Allergies Allergy Verified 12/27/17 09:35 Review of Systems Review of Systems All systems reviewed & are unremarkable except as noted in HPI and below Exam Vital Signs (past 8 hours): - 04/06/18 15:54 04/06/18 18:00 Temperature 97.2 F L Pulse Rate 90 73 Respiratory Rate 13 Blood Pressure 148/85 H Blood Pressure [Right Arm] 140/80 Pulse Oximetry 100 100 Oxygen Delivery Method Room Air Narrative Exam Narrative: Well-nourished well-developed male lying in the gurney in the emergency department in no acute distress but he does appear acutely ill an obviously uncomfortable. No fevers. No tachycardia. Normal blood pressure Sclera nonicteric Chest clear to auscultation bilaterally without crackles or wheezes. Regular rate and rhythm. No murmurs. Abdomen is soft but he does have bowel sounds. He is not particularly distended nor is he tympanitic. No masses. No obvious hernias. However, he is diffusely tender to palpation with significant tenderness over McBurney's point. He does have a positive Rovsing sign. Extremities show no clubbing, cyanosis, or edema Objective Labs Result Diagrams: 04/06/18 16:15 04/06/18 16:15 Labs: Laboratory Results - last 24 hr 04/06/18 04/06/18 16:15 16:15 WBC 14.7 H RBC 4.71 Hgb 14.4 Hct 41.6 MCV 88.3 MCH 30.7 MCHC 34.7 RDW 13.0 Plt Count 267 Neut % (Auto) 84.8 H Lymph % (Auto) 7.5 L [place] % (Auto) 6.5 Eos % (Auto) 0.7 L Baso % (Auto) 0.5 Neut # (Auto) 09834 H Lymph # (Auto) 1100 [place] # (Auto) 1000 H Eos # (Auto) 100 Baso # (Auto) 100 Sodium 139 Potassium 3.7 Chloride 101 Carbon Dioxide 25 BUN 11 Creatinine 0.90 Estimated GFR > 60.0 BUN/Creatinine Ratio 12.2 Glucose 97 Calcium 9.4 I have personally reviewed his CT scan of the abdomen and pelvis done through the emergency department earlier today. No free air. No free fluid. Spleen and liver are normal without lesions. Stomach is not dilated. No significant lymphadenopathy. Major vessels are normal containing IV contrast. No dilated loops of bowel. No air-fluid levels. Small-bowel otherwise appears grossly normal except at the terminal ileum which does appear mildly thickened and edematous along the wall. There is also wall thickening of the entire right colon including the hepatic flexure. There appears to be some thickening of the left colon above the sigmoid as well. Some mild mesenteric stranding near the cecum. I do not appreciate the appendix so I cannot comment on whether it is normal or otherwise inflamed. Final radiology reading is still pending. Assessment & Plan Plan: Assessment/Plan Narrative: 42-year-old otherwise healthy male with no family history of inflammatory bowel disease or any known recent dietary/travel exposures who now has significant abdominal pain and nausea. His history and physical examination findings would clearly support a diagnosis of acute appendicitis, but the CT scan suggests a potential colitis. I do not believe this represents cecal diverticulitis. 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 I doubt new onset inflammatory bowel disease. Nonetheless I remain concerned about acute appendicitis, but I do not have a clear explanation for the diffuse colon inflammation seen on CT scan. Because of the findings that would suggest colitis I believe it would be prudent to admit him for at least observation overnight and administer Levaquin and Flagyl intravenously. Maintain IV fluid resuscitation with normal saline. Treat his pain with Dilaudid DIRECTOR OF FIRST IMPRESSIONS. Repeat CBC and basic metabolic panel in the morning. Obtain stool specimen, if possible, for culture. In my opinion, if he does indeed have acute appendicitis the above measures will not lead to significant improvement clinically and he would subsequently require urgent laparoscopic appendectomy tomorrow morning. If he has an infectious colitis or even diverticulitis then I am hopeful that the IV fluid resuscitation, bowel rest, and antibiotics would began to manifest some improvement in his overall status. I discussed all the above with him in detail this evening. All questions were answered to his satisfaction, and he voiced understanding. Orders were written.
[2018-04-06] MEDS: ACETAMINOPHEN 325 MG TABLET 650 MG PO (19:34)
[2018-04-06] MEDS: SODIUM CHLORIDE 0.9% 1,000 ML 125 ML IV (19:36)
[2018-04-06] MEDS: metroNIDAZOLE 500 MG/100 ML PIGGYBACK 100 MG IV ×2 (19:44→19:50)
[2018-04-06] MEDS: levoFLOXacin 750 MG/150 ML PIGGYBACK 100 MG IV (20:54)
--- NOTE | 2018-04-06 22:29 | PC.NURSE ---
Pt arrived from ER, awake, alert. Lungs clear SpO2 98% RA C/O RLQm discomfort. Med w/tyleonl per pt request w/ minimal relief. IVF infusing as per orders. via pump w/o incidence. BREWING DIRECTOR initiated at 2220 for more discomfort. Call light w/in reach, pt encouraged to call for assistance. Continue w/plan of care.
[2018-04-06 23:00] VITALS: O2SAT 98
[2018-04-06 23:20] VITALS: BP 115/67; PULSE 108; RESP 17; TEMP 37; O2SAT 97
[2018-04-07] VITALS (22 sets, daily range): BP systolic 111–142; BP diastolic 63–86; PULSE 84–128; RESP 10–18; TEMP 36.6–38.3; O2SAT 90–100; BMI 25.7
--- NOTE | 2018-04-07 | PATH_ITS ---
[facility] Accession Number: [id number] . 01 Material submitted: . APPENDIX . 02 Diagnosis: Appendix, Appendectomy: Acute appendicitis with transmural suppurative inflammation and serositis (microscopic perforation). Negative for neoplasm. MRV/04/10/2018 . 02 Electronically signed: . Gilbert Hough MD, PhD, Pathologist NPI- [id number] . 01 Gross description: . Received in formalin, labeled appendix, is an intact appendix (length-5.5 cm, diameter-0.9 cm) with mtz-[place] smooth shiny serosa and attached mesoappendix (up to 2.5 cm in depth). The serosa is partially covered in mtz flaky friable exudate. The resection margin is received stapled. The lumen contains [place] solid soft material. The wall is up to 0.3 cm thick. No nodules, masses or lesions are identified. The resection margin is inked black. Section code: (A1) resection margin en face and three additional serial sections; (A2) one-half of the bivalved tip. ([id number]) /MRV . 02 Pathologist provided ICD-10: K35.21 . 02 CPT . 710002 Performed at: 01 [facility] [address], [place], [place] [id number] MD Alexandre English MD Phone: [phone] Performed at: 02 [facility] [address] [place], [place] [id number] MD Sonia Huang MD Phone: [phone]
[2018-04-07] MEDS: metroNIDAZOLE 500 MG/100 ML PIGGYBACK 100 MG IV ×4 (02:19→23:33)
[2018-04-07] MEDS: ACETAMINOPHEN 325 MG TABLET 650 MG PO ×2 (05:10→15:44)
[2018-04-07 05:17] LABS: Add Manual Diff / Slide Review NO; Basophils Absolute Auto 100 /uL (0-100); Basophils Percent Auto 0.4 % (0-2); Eosinophils Absolute Auto 0 /uL (0-450); Eosinophils Percent Auto 0.3 % (2-4); Hematocrit 40.1 % (41-53); Hemoglobin 13.8 g/dL (13.5-17.5); Lymphocytes Absolute Auto 1100 /uL (1100-4500); Lymphocytes Percent Auto 7.5 % (25-40); Mean Corpuscular HGB Conc 34.4 % (30-36); Mean Corpuscular Hemoglobin 30.7 PG (26-34); Mean Corpuscular Volume 89.1 fL (80-100); Monocytes Absolute Auto 1300 /uL (0-900); Monocytes Percent Auto 8.8 % (3-14); Neutrophils Absolute Auto 12000 /uL (1500-7000); Platelet Count 236 X10^3/uL (150-400); Red Cell Distribution Width 12.9 % (11.6-14.8); White Blood Cell Count 14.4 X10^3/uL (4.5-11.0)
[2018-04-07 05:30] LABS: Blood Urea Nitrogen 10 mg/dL (9-20); Calcium 8.7 mg/dL (8.4-10.2); Carbon Dioxide 28 mmol/L (22-32); Chloride 100 mmol/L (98-107); Estimated Glomerular Filt Rate > 60.0 mL/min (>60); Glucose 110 mg/dL (70-100); HEMOLYSIS < 15 (0-50); Potassium 4.2 mmol/L (3.4-5.1); Sodium 136 mmol/L (137-145)
--- NOTE | 2018-04-07 05:30 | PC.NURSE ---
Pt is A and O x 4, VSS. 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 Nausea when ambulating to BR, resolved when back in bed. Difficulty sleeping, declined medication. LS clear, S1, S2, -BTs in all quadrants.
[2018-04-07] MEDS: SODIUM CHLORIDE 0.9% 1,000 ML 125 ML IV ×2 (05:49→17:35)
[2018-04-07] MEDS: HYDROMORPHONE PCA (6MG/30ML) 6 MG/30 ML PCA.VIAL IV (05:52)
--- NOTE | 2018-04-07 07:31 | P.PN_ITS ---
Subjective Date Patient Seen: 04/07/18 Time Patient Seen: 07:19 Interval history: Patient had a restless night. He continues to have diffuse significant abdominal pain and associated nausea. No vomiting. Pain is most intense in the right lower quadrant as it was yesterday. He feels that the intensity may actually have increased overnight. No significant bowel function. Remains anorexic. Pain is exacerbated with ambulation. Exam Vital Signs (past 8 hours): - 04/06/18 23:20 04/07/18 02:54 Temperature 98.6 F 98.4 F Pulse Rate 108 H 106 H Respiratory Rate 17 16 Blood Pressure 115/67 128/74 Pulse Oximetry 97 99 Oxygen Delivery Method Room Air Narrative Exam Narrative: Well-nourished well-developed male in bed in no acute distress but obviously appears uncomfortable and acutely ill. Alert oriented x3 No fevers overnight with maximal temperature 98.6?, but he has become tachycardic in the last several hours to 100 for or 108 beats per minute. Rhythm is sinus by auscultation No crackles or wheezes Abdomen remains firm and minimally distended. He is diffusely tender but again exhibits significant involuntary guarding at the right lower quadrant near McBurney's point with a positive Rovsing sign. No masses Objective Labs Result Diagrams: 04/07/18 04:58 04/07/18 04:58 Labs: Laboratory Results - last 24 hr 04/06/18 04/06/18 04/07/18 16:15 16:15 04:58 WBC 14.7 H 14.4 H RBC 4.71 4.50 Hgb 14.4 13.8 Hct 41.6 40.1 L MCV 88.3 89.1 MCH 30.7 30.7 MCHC 34.7 34.4 RDW 13.0 12.9 Plt Count 267 236 Neut % (Auto) 84.8 H 83.0 H Lymph % (Auto) 7.5 L 7.5 L [place] % (Auto) 6.5 8.8 Eos % (Auto) 0.7 L 0.3 L Baso % (Auto) 0.5 0.4 Neut # (Auto) 40264 H 41432 H Lymph # (Auto) 1100 1100 [place] # (Auto) 1000 H 1300 H Eos # (Auto) 100 0 Baso # (Auto) 100 100 Sodium 139 Potassium 3.7 Chloride 101 Carbon Dioxide 25 BUN 11 Creatinine 0.90 Estimated GFR > 60.0 BUN/Creatinine Ratio 12.2 Glucose 97 Calcium 9.4 04/07/18 04:58 WBC RBC Hgb Hct MCV MCH MCHC RDW Plt Count Neut % (Auto) Lymph % (Auto) [place] % (Auto) Eos % (Auto) Baso % (Auto) Neut # (Auto) Lymph # (Auto) [place] # (Auto) Eos # (Auto) Baso # (Auto) Sodium 136 L Potassium 4.2 Chloride 100 Carbon Dioxide 28 BUN 10 Creatinine 1.00 Estimated GFR > 60.0 BUN/Creatinine Ratio 10.0 Glucose 110 H Calcium 8.7 Assessment & Plan Plan: Assessment/Plan Narrative: 42-year-old otherwise healthy male with ongoing unchanged abdominal pain focused mostly in the right lower quadrant. His examination remains concerning. Furthermore he is now tachycardic and his leukocytosis remains unchanged despite antibiotics overnight. He is not having any diarrhea or obviously bloody stool recently. Although the CT scan would suggest colitis, most likely of infectious etiology, his symptoms and examination findings are clearly most concerning for acute appendicitis. I had a lengthy discussion with him at the bedside this morning regarding all the above issues. The clinical dilemma arises from the disparity between his symptoms and examination findings juxtaposed to the CT scan findings. Nevertheless, the clinical situation that would carry the highest risk of complications would be a missed appendicitis that would deteriorate to potential rupture, abscess, and/or peritonitis. I therefore believe he would require and benefit from laparoscopic appendectomy this morning. I discussed with him the alternative of potential bowel preparation today with colonoscopy tomorrow then proceed based on those findings. However, again this would be a potential delay in diagnosis if the colonoscopy were unremarkable. Appendectomy with a fresh suture line along the cecum would prohibit colonoscopy for another 6 or 8 weeks , in my opinion, but even if his appendix is normal today at surgery he could be treated empirically for colitis with antibiotics and possibly mesalamine if indicated. One of the technical clinical concerns at operation would be the presence of significant colitis/ typhlitis that could potentially complicate appropriate healing of the suture line at the base of the appendix following appendectomy. I discussed this with him. Regardless I believe he warrants at least diagnostic laparoscopy with potential appendectomy based on intraoperative findings since again, in my opinion, this offers him the best and safest potential outcome for treatment and management. I discussed all of this decision algorithm with him in detail today. I also discussed the technical details of laparoscopic appendectomy. Risks, benefits, alternatives were explained. Risks including but not limited to anesthesia, bleeding, infection, pain, scars, need to convert open procedure, need for drains, gastric injury, small-bowel injury, appendiceal stump leak, colon injury, need for further major abdominal surgery, need for other procedures, normal appendix , and nondiagnostic study were all discussed in detail. Questions were answered to his satisfaction, and he voiced understanding. Consent was placed on the chart. We will proceed this morning as above.
--- NOTE | 2018-04-07 07:31 | PM.PREOP ---
Pre-operative Note Interval Note History & Physical reviewed/Exam performed by Physician: Yes Changes to H&P: No H&P completed within 30 days and has changed as indicated here:: Patient seen and examined again today. History and physical examination has not changed since yesterday. Proceed with laparoscopic appendectomy today as planned.
--- NOTE | 2018-04-07 08:30 | PC.NURSE ---
Pt down to surgery at 0830. Pt complained of pain to his r lower quadrant, using HOUSE SERVANT and helpful. IVF infusing, all before pt taken down for surgery.
[2018-04-07] MEDS: CEFAZOLIN 2 GM/100 ML FROZ.PIGGY IV (09:10)
--- NOTE | 2018-04-07 09:35 | SUR.OPER ---
Supine on padded OR bed, head on pillow, arms secured on padded arm boards at <90 degrees abduction, legs uncrossed, safety belt at thigh, tape over blanket over lower legs.
[2018-04-07] MEDS: BUPIVACAINE 0.5% (PF) VIAL 30 ML INJ (09:47)
[2018-04-07] MEDS: LIDOCAINE 1% W/EPI INJ 20 ML INJ (09:48)
[2018-04-07] MEDS: ONDANSETRON 4 MG/2 ML INJ IV (10:45)
[2018-04-07] MEDS: fentaNYL 100 MCG/2 ML INJ 50 MCG IV ×2 (10:45→11:08)
--- NOTE | 2018-04-07 10:56 | P.OP_ITS ---
Operative Date/Time/Diagnoses Date of procedure: 04/07/18 Time of procedure: 10:47 Pre-op diagnosis: Right lower quadrant abdominal pain and possible colitis Post-op diagnosis: other (Right lower quadrant abdominal pain secondary to acute suppurative appendicitis) Procedure & Clinicians Procedure: Laparoscopic appendectomy Same procedure as scheduled: Yes Indications: 42-year-old otherwise healthy male who presented the emergency department last evening with approximately 12 hr history of progressive abdominal pain. Examination and evaluation were consistent with possible acute appendicitis, but CT scan imaging suggested diffuse colitis. There was no evidence of free fluid or abscess. He was therefore admitted for resuscitation and intravenous antibiotics as well as bowel rest and analgesia. Nevertheless he did not improve with overnight observation and the above interventions. He was therefore taken to the operating room for diagnostic laparoscopy with potential appendectomy. Surgeon: Collin Zuniga Click Yes if Unassisted: Yes Anesthesia Type: General Operative Notes Findings: 1. Grossly normal-appearing liver, gallbladder, stomach, small bowel including terminal ileum, and colon within the limits of laparoscopic visualization 2. Acute suppurative appendicitis without evidence of abscess or rupture 3. No evidence of diverticulitis or colitis 4. Small amount of purulent fluid in the pelvis, subsequently suctioned and sent for culture. Closure Type: primary Specimen(s): other (1. Pelvic fluid for culture 2. Appendix) Implants & Drains: None Estimated Blood Loss (mL): 25 Blood products transfused: none Procedure in detail: After obtaining informed consent the patient was brought to the operating room and placed supine on the table. After satisfactory induction of anesthesia a Huffman catheter was inserted to decompress the urinary bladder. Abdomen was prepped and draped in usual sterile fashion. SCOAP time out was performed per standard protocol. A 1: 1 mixture 1% lidocaine with 1 : 100,000 epinephrine and 0.5% plain Marcaine was injected in the skin and subcutaneous tissue at the superior aspect of the umbilicus for postoperative analgesia. Vertical midline incision was created at the superior aspect of the umbilicus for a distance of approximately 2 cm with 11 scalpel blade. Blunt dissection revealed the rectus fascia which was divided in the midline under direct visualization with 11 scalpel blade. Edges of the fascia were secured with Frances clamps and elevated into the operative field. Fascia was then secured superiorly and inferiorly with interrupted 0 Vicryl suture. Underlying peritoneum was entered under direct visualization with Beatriz clamp and a blunt 12 mm Rosado trocar was inserted. Carbon dioxide pneumoperitoneum was created and the abdomen was visually explored with a 30 degree 5 mm laparoscope. Findings are as above. Under direct laparoscopic visualization to individual 5 mm trocars were inserted in the left lower quadrant and midline abdominal area. Patient was placed in Trendelenburg position. Pelvic fluid was suctioned with the suction health service coordinator device and a specimen was sent for culture. César graspers were used to manipulate the appendix and terminal ileum as well as the cecum in order to fully visualize the inflamed appendix. Meticulous blunt and sharp dissection was employed using both a laparoscopic scissor as well as [place] dissector to free the appendix from its adjacent inflammatory adhesions. Great care was taken to avoid injury to the terminal ileum and cecum. An avascular window was eventually created between the mesoappendix and base of the appendix. The mesoappendix was divided with 2 separate applications of the Endo-VERONIQUE 45 mm stapler using a vascular load. Two applications were required given the thickened inflamed nature of the tissue. A single application of the Endo-VERONIQUE 45 mm stapler with a tissue load was used to divide the appendix at its junction with the cecum. Although the cecum was mildly inflamed that was viable and soft to adequately accommodate a staple line without undue risk of leakage. Specimen was then placed in an endo-pouch and retrieved through the umbilical incision. Specimen was sent for permanent section. Right lower quadrant and pelvis were irrigated with copious amounts of sterile saline solution then suctioned from the abdomen. Hemostasis was verified. The staple lines were meticulously examined on multiple occasions and noted to be hemostatic, and there was no evidence of any leakage from the appendiceal stump at the cecum. There was no evidence of abscess or any other abnormalities. Patient was returned to supine position and further irrigation was performed. Instruments and trocars were then removed under direct visualization and hemostasis verified. Carbon dioxide was evacuated. Fascia at the umbilical incision was closed with the previously placed 0 Vicryl suture. Skin at all 3 incisions was then closed in a running subcuticular fashion with 4 0 Monocryl suture. Dermal adhesive was applied to the skin. Huffman catheter was removed. Anesthesia was reversed and patient extubated in the operating room. He was taken recovery in stable condition. Complications: none Condition: stable Disposition: PACU Plan for aftercare: 1. Return to regular surgical floor for ongoing convalescence and intravenous antibiotics
[2018-04-07] MEDS: LACTATED RINGERS 1,000 ML 42 ML IV ×2 (11:20)
[2018-04-07] MEDS: BENZOCAINE/MENTHOL 1 LOZ PKT 1 EACH PO (11:24)
[2018-04-07] MEDS: HYDROMORPHONE 2 MG INJ 0.5 MG IV ×3 (11:25→11:34)
[2018-04-07] MEDS: OXYCODONE IR 5 MG TABLET PO ×3 (14:28→21:08)
--- NOTE | 2018-04-07 16:16 | PC.NURSE ---
Addendum entered by Kavya Palomino R.N. 04/07/18 19:45: Reports increased pain not relieved by Oxycodone routine, given Dilaudid 0.5 mg for breakthrough pain which he says brings pain from 7 to a 4. Ambulated in hallways independently. Original Note: Shift note: Ashu reports ambulating in room recently, now c/o pain 7/10 to abdomen with facial grimace. Requesting TYlenol for pain, refused IV Dilaudid at this point, instructed him to call me if Tyl/oxycodone not adequate for pain relief. HR tachycardic at 110 bpm during assessment. RA oxygen 97-98% per pulse ox. BT hypoactive, denies flatus. 3 lap sites to middle and LUQ CDI, NAGA slight speckled pink/purlple bruising around sites. No erythema/swelling. Requests SCD's be left off at this time, encouraged foot pumps and toe wiggling while in bed. Instructed him to call if he has any needs/concerns.
[2018-04-07] MEDS: HYDROMORPHONE 2 MG INJ 1 MG IV ×2 (16:34→19:24)
--- NOTE | 2018-04-07 17:25 | P.PN_ITS ---
Subjective Date Patient Seen: 04/07/18 Time Patient Seen: 17:22 Interval history: Patient is sitting comfortably in bed in no acute distress. Pain is controlled, but he did require some intravenous Dilaudid about 30 min ago. No nausea or vomiting. Tolerated a small amount of regular diet for dinner. Not particularly hungry at the moment. No subjective fever or chills. No chest pain or shortness of breath. He has been able to urinate since surgery spontaneously. No flatus or bowel function as yet. Exam Vital Signs (past 8 hours): - 04/07/18 10:40 04/07/18 10:45 04/07/18 10:50 Temperature 99.4 F Pulse Rate 128 H 119 H 119 H Respiratory Rate 10 L 17 13 Blood Pressure 128/73 112/73 120/66 Pulse Oximetry 93 92 90 L 04/07/18 10:55 04/07/18 11:05 04/07/18 11:15 Temperature 101 F H Pulse Rate 108 H 110 H 117 H Respiratory Rate 10 L 13 14 Blood Pressure 119/67 112/63 115/65 Pulse Oximetry 99 99 100 04/07/18 11:25 04/07/18 11:28 04/07/18 11:30 Temperature 101 F H 101 F H 99.5 F Pulse Rate 98 H Respiratory Rate 11 L Blood Pressure 111/72 Pulse Oximetry 97 04/07/18 11:34 04/07/18 11:35 04/07/18 11:45 Temperature 101 F H 98.3 F Pulse Rate 109 H 110 H Respiratory Rate 12 12 Blood Pressure 111/67 115/73 Pulse Oximetry 97 95 04/07/18 12:15 04/07/18 12:45 04/07/18 13:45 Temperature 98.2 F 97.8 F 98.2 F Pulse Rate 92 H 109 H 99 H Respiratory Rate 14 16 16 Blood Pressure 120/79 116/72 111/72 Pulse Oximetry 93 96 96 04/07/18 14:06 04/07/18 14:55 04/07/18 16:05 Temperature 98.1 F Pulse Rate 100 H Respiratory Rate 16 Blood Pressure 142/86 H Pulse Oximetry 98 95 98 04/07/18 16:20 Temperature 98.1 F Pulse Rate 84 Respiratory Rate 16 Blood Pressure 131/83 Pulse Oximetry 95 Oxygen Delivery Method Room Air Oxygen Flow Rate 2 Narrative Exam Narrative: Patient is sitting in bed in no acute distress. Alert oriented x3. Remains tachycardic but afebrile with current temperature 99.4? Abdomen is soft and minimally distended. He is appropriately tender. Incisions are clean, dry, and intact without erythema. Minimal ecchymoses. Objective Labs Result Diagrams: 04/07/18 04:58 04/07/18 04:58 Labs: Laboratory Results - last 24 hr 04/07/18 04/07/18 04:58 04:58 WBC 14.4 H RBC 4.50 Hgb 13.8 Hct 40.1 L MCV 89.1 MCH 30.7 MCHC 34.4 RDW 12.9 Plt Count 236 Neut % (Auto) 83.0 H Lymph % (Auto) 7.5 L [place] % (Auto) 8.8 Eos % (Auto) 0.3 L Baso % (Auto) 0.4 Neut # (Auto) 81853 H Lymph # (Auto) 1100 [place] # (Auto) 1300 H Eos # (Auto) 0 Baso # (Auto) 100 Sodium 136 L Potassium 4.2 Chloride 100 Carbon Dioxide 28 BUN 10 Creatinine 1.00 Estimated GFR > 60.0 BUN/Creatinine Ratio 10.0 Glucose 110 H Calcium 8.7 Gram stain from the pelvic fluid demonstrates multiple white blood cells but no organisms. Awaiting cultures. Assessment & Plan Plan: Assessment/Plan Narrative: 42-year-old male status post laparoscopic appendectomy earlier this morning for acute suppurative appendicitis without abscess who is stable postoperatively. Remains tachycardic however. Continue IV fluid resuscitation and intravenous Levaquin along with Flagyl. Will continue to monitor his progress. If he improves tomorrow then we could discharge home on oral antibiotics. However, he will not be ready for discharge until he is tolerating better oral intake, oral analgesics, and tachycardia has resolved.
[2018-04-07] MEDS: levoFLOXacin 750 MG/150 ML PIGGYBACK 100 MG IV (19:29)
[2018-04-07] MEDS: DOCUSATE 100 MG CAPSULE PO (21:08)
[2018-04-07] MEDS: SENNOSIDES 8.6 MG TABLET PO (21:09)
[2018-04-08 00:25] VITALS: BP 119/72; PULSE 100; RESP 20; TEMP 36.6; O2SAT 95
[2018-04-08 00:30] VITALS: O2SAT 97
[2018-04-08] MEDS: ACETAMINOPHEN 325 MG TABLET 650 MG PO ×2 (00:44→07:56)
[2018-04-08 04:20] VITALS: BP 111/62; PULSE 102; RESP 18; TEMP 36.6; O2SAT 95
[2018-04-08] MEDS: metroNIDAZOLE 500 MG/100 ML PIGGYBACK 100 MG IV (04:34)
[2018-04-08] MEDS: SODIUM CHLORIDE 0.9% 1,000 ML 125 ML IV (04:37)
--- NOTE | 2018-04-08 04:43 | PC.NURSE ---
Pt is A and O x 4, VSS, tolerating pain with infrequent 5 mg po oxycodone and 650 mg po APAP. Ate 1/2 sandwich for dinner, 0 BTs , voiding qs pale yellow, walking well and able to sleep. Lap sites NAGA, glue, clean.
[2018-04-08 07:50] VITALS: O2SAT 95
[2018-04-08] MEDS: PANTOPRAZOLE 40 MG VIAL IV (07:56)
[2018-04-08] MEDS: DOCUSATE 100 MG CAPSULE PO (07:56)
[2018-04-08 08:00] VITALS: BP 134/75; PULSE 91; RESP 18; TEMP 36.8; O2SAT 99
--- NOTE | 2018-04-08 09:56 | P.DS_ITS ---
History of Present Illness Date Patient Seen: 04/08/18 Time Patient Seen: 09:51 Chief complaint: rt lower quadrant abdominal pain and nausea Narrative: 42-year-old otherwise healthy male who was at work this morning in his usual state of health and subsequently began to feel some vague crampy abdominal pain. He subsequently became mildly nauseated but did not vomit. He travels home at approximately 10:00 a.m. this morning after work with the above symptoms slowly worsening. States that he had some mild chills at that time but no subjective fever. He had 1 episode of dry heaves after arriving home but no vomiting. He has had none since. He had eaten 1 bag of potato chips at work and since that time has only consumed a little bit of water. He is not particularly hungry. Because he was having some chills and progressive abdominal pain he took a warm bath with little relief. He tried to take a brief nap but noticed that the abdominal pain continued to progress in severity. Pain began near the periumbilical region but became much more sharp and then radiated to the right lower quadrant where it has been present since that time. Pain is exacerbated with ambulation or other activity. He did drive himself to the emergency department earlier this afternoon given the severity of his pain, and informs me that the drive was quite difficult due to exacerbation of his right lower quadrant abdominal pain. He has never had similar symptoms in the past. He denies any recent change in his bowel habits. No diarrhea although his stool earlier today was somewhat soft. Nevertheless he is not passing flatus all this afternoon. No melena, hematochezia, or bright red blood per rectum. No pain with defecation earlier today, but the bowel movement did not alleviate any of his abdominal pain. He has had no dysuria or hematuria. Discharge Providers Date of admission: 04/07/18 08:13 Discharge provider: Collin Zuniga MD Discharge Date: 04/08/18 Summary Discharge Diagnosis: 1. Acute suppurative appendicitis without rupture or abscess 2. Laparoscopic appendectomy April 07, 2018 3. Otherwise healthy adult male with no pertinent past medical history or past surgical history prior to admission Hospital Course: Patient was admitted from the emergency department to the regular surgical floor for observation with significant abdominal pain. There was some question on CT scan imaging of pancolitis without compelling evidence radiographically of appendicitis even though his clinical history and examination would suggest such. After overnight observation with fluid resuscitation and analgesia his examination remained unchanged as did his leukocytosis. All findings were most consistent with appendicitis and he was therefore taken to the operating room the morning after admission for laparoscopic appendectomy. He did indeed have otherwise uncomplicated suppurative appendicitis. No evidence of colitis. He tolerated the surgical procedure without any issues. Postoperatively he was returned to the regular surgical floor where he remained afebrile and hemodynamically stable. His tachycardia eventually resolved and at the time of discharge he is having no issues with fevers, chills, tachycardia, or abnormal blood pressure. He has had spontaneous return of bladder function without dysuria. He is passing a small amount of flatus but no bowel movement. His pain is well controlled with oral analgesics. He remains on Levaquin and Flagyl which was begun at admission. All cultures so far have remain negative to date here on postoperative day 1. Final results are still pending of course. He is ambulating without difficulty. He is feeling much better and his examination shows his abdomen to be much less tender and less distended. Because of his improved condition he is discharged home on postoperative day 1. He will follow up in surgery Clinic next week. He will complete an additional 5 day course of Levaquin and Flagyl orally. I instructed him to call or return sooner to the clinic, however, if he has any fever, chills, nausea, vomiting, inability to tolerate a diet, progressive constipation and/or distension, or significant progressive abdominal pain. All questions were answered to his satisfaction, and he voiced understanding. His is also present for my entire visit today. Status at Discharge Cognitive/behavioral status at discharge: Alert, oriented x3 Functional status at discharge: independent ambulation Overall status at discharge: patient is progressing back to baseline Time Spent with Patient Less than 30 minutes Exam Vital Signs (past 8 hours): - 04/08/18 04:20 04/08/18 07:50 04/08/18 08:00 Temperature 97.8 F 98.2 F Pulse Rate 102 H 91 H Respiratory Rate 18 18 Blood Pressure 111/62 134/75 Pulse Oximetry 95 95 99 Oxygen Delivery Method Room Air Oxygen Flow Rate 2 Narrative Exam Narrative: Well-nourished well-developed male in no acute distress. Alert oriented x3 Afebrile. No further tachycardia this morning. Chest clear to auscultation bilaterally with regular rate and rhythm. No murmurs , gallops, rubs. No crackles or wheezes. Abdomen is soft and nondistended. Incisions are clean, dry, and intact without erythema. Minimal ecchymosis at the umbilicus. No hematoma or seroma. No wound drainage. He is appropriately tender around the incisions but without guarding or rebound. He is much less tender in the right lower quadrant today. Extremities show no clubbing, cyanosis, or edema Objective Labs Result Diagrams: 04/07/18 04:58 04/07/18 04:58 Labs: Final culture results are still pending at discharge Discharge Plan Discharge Med Rec/Prescriptions Prescriptions: New sennosides [senna] 8.6 mg Tablet 8.6 mg PO BEDTIME Qty: 10 RF: 1 acetaminophen 325 mg Tablet 650 mg PO Q6HR PRN (Reason: As Needed For Fever/Mild Pain) Qty: 60 RF: 0 docusate sodium 100 mg Capsule 100 mg PO BID Qty: 20 RF: 1 oxycodone 5 mg Tablet 5 mg PO Q3HR PRN (Reason: Pain, Moderate (4-6)) Qty: 20 RF: 0 metronidazole [Flagyl] 500 mg tablet 500 mg PO TID Qty: 15 RF: 0 levofloxacin [Levaquin] 750 mg tablet 750 mg PO DAILY Qty: 5 RF: 0 Follow up/Referrals: Collin Zuniga MD [Physician] - 04/15/18 1:30 pm Discharge Orders: Discharge (Order); Ordered 04/08/18 Ordered By: Collin Zuniga Provider Discharge Instructions Diet: Diet as Tolerated Activity: No driving while taking opioid pain medication No lifting more than 20 lb until further notice May walk as much as desired May climb stairs May ride in vehicle Cold/Heat Therapy: May apply ice pack to incisions as needed for comfort Other treatments: May take [id number] laxative such as milk of magnesia if needed Skin/Wound/Dressing Care Report to your healthcare provider any signs of infection, such as:: chills, fever, night sweats, increased pain, unusual drainage and unusual redness Dressing: No dressing necessary Other wound treatment: May shower Do not soak incisions in bathtub or pool for 2 weeks Discharge Data Attending Provider: Collin Zuniga Admit Date/Time: 04/07/18 08:13
--- NOTE | 2018-04-08 11:31 | PC.NURSE ---
Discharge pt states pain controlled with tylenol. He also uses an ice pack to help with pain. PIV removed prior to d/c. Pt states he took all belongings with him. D/c instructions provided to pt and his . notified of f/u apt with MD on 04/15. aware to contact MD with any additional questions or concerns. pt left in w/c with [employer] escort to private vehicle with his and daughter.
== END 2018-04-08 10:45 | disposition home or self-care (01) | DRG 343 ==
LOC: ED 16:35 → AC 18:48
PROVIDERS: Admitting Provider Surgery; Emergency Provider Emergency Medicine; Visit Provider Surgery
PROC: 0DTJ4ZZ Resection of Appendix, Percutaneous Endoscopic Approach (ICD-10-PCS; CPT 44970; principal; 2018-04-07 08:10)
DX: K35.32 Acute appendicitis with perforation, localized peritonitis, and gangrene, without abscess (principal); R10.31 Right lower quadrant pain; E86.0 Dehydration
CPT/HCPCS: 44970; 36415; 36591; 74177; 80048; 81003; 85025; 87070; 87075; 87205; 96361; 96374; 96375; 99220; 99283; 99285; G0378; C9113; J0330; J0690; J1100; J1170; J1956; J2250; J2270; J2405; J2704; J3010; Q9967

== ENCOUNTER 2018-04-09 17:32 | Inpatient (IN) | payer OTHER, SELFPAY ==
[2018-04-09 17:51] VITALS: BP 126/86; PULSE 110; RESP 15; TEMP 37.8; O2SAT 99; BMI 26.6
--- NOTE | 2018-04-09 18:18 | DI.RAD.S_ITS ---
PROCEDURE: XR ACUTE ABDOMEN SERIES INDICATIONS: suspected sepsis TECHNIQUE: One view chest and two views of the abdomen were acquired. COMPARISON: [facility], CT, CT ABDOMEN PELVIS W CON, 04/06/2018, 16:39. FINDINGS: Surgical changes and devices: None. Chest: Lungs are clear. Heart size is normal. No pleural effusions. No definite pneumoperitoneum. Abdomen: There are scattered air-fluid levels within the colon. There is a paucity of gas in the small bowel. No suspicious calcifications. Bones: No suspicious bony lesions. IMPRESSION: 1. Scattered air-fluid levels in the colon suggestive of an ileus. 2. No definite evidence of pneumatosis. Dictated by: Alexandre Wallace M.D. on 04/09/2018 at 19:16 Approved by: Alexandre Wallace M.D. on 04/09/2018 at 19:23
[2018-04-09 18:23] VITALS: BP 141/84; PULSE 91; RESP 17; TEMP 37.3; O2SAT 100
--- NOTE | 2018-04-09 18:41 | ED.ABDPAIN ---
HPI - Abdominal Pain General Chief Complaint: Abdominal Pain Stated Complaint: ABD PAIN S/P APPENDECTOMY Time Seen by Provider: 04/09/18 18:06 Source: patient Mode of arrival: ambulatory Limitations: no limitations History of Present Illness HPI narrative: 42-year-old male, nonsmoker otherwise largely healthy presents with increasing pain, fever and shaking chills over the course of the day. He had a laparoscopic appy a few days ago was just discharged yesterday. Over the course of the day the patient has had no flatus, no bowel movements, increasing right lower quadrant pain, now much worse with any movement, sneezing or cough. He has intense nausea though minimal vomiting. Patient has had oxycodone with a small amount of water at 4:00 p.m. has small lunch at noon. He feels worse today than prior to the surgery MD complaint: abdominal pain Onset (ago): hour(s) Pain Consistency: constant Location: RLQ Severity: severe Quality: cramping and stabbing Radiation: none Migration to: no migration Relieving factors: rest Exacerbating factors: movement Associated symptoms: nausea, fever and chills Related Data Previous Rx's Medication Instructions Recorded acetaminophen 650 mg PO Q6HR PRN #60 tab 04/08/18 docusate sodium 100 mg PO BID #20 cap 04/08/18 levofloxacin [Levaquin] 750 mg PO DAILY #5 tab 04/08/18 metronidazole [Flagyl] 500 mg PO TID #15 tab 04/08/18 oxycodone 5 mg PO Q3HR PRN #20 tab 04/08/18 sennosides [senna] 8.6 mg PO BEDTIME #10 tab 04/08/18 Allergies Allergy/AdvReac Type Severity Reaction Status Date / Time No Known Drug Allergies Allergy Verified 04/09/18 17:51 Review of Systems Constitutional Reports chills, Reports fever(s), Denies lethargy and Denies weakness Eyes Denies change in vision, Denies eye discharge, Denies irritation and Denies loss of vision ENT Ears, Nose, Mouth, and Throat: Denies change in voice, Denies neck pain and Denies sore throat Cardiovascular Denies chest pain, Denies irregular heart rhythm, Denies lightheadedness, Denies palpitations, Denies dyspnea, Denies dyspnea on exertion and Denies orthopnea Respiratory Denies cough, Denies dyspnea, Denies dyspnea on exertion and Denies wheezing Gastrointestinal Gastrointestinal: Reports abdominal pain, Denies change in bowel habits, Reports change in stool character, Denies diarrhea, Reports nausea and Denies vomiting Genitourinary Denies hematuria, Denies flank pain, Denies urinary incontinence and Denies urinary urgency Musculoskeletal Denies neck pain Integumentary/Breasts Denies pruritus, Denies erythema, Denies rash and Denies wounds Neurologic Denies confusion, Denies loss of vision and Denies weakness Psychiatric Denies anxiety, Denies confusion, Denies depression, Denies homicidal ideation and Denies suicidal ideation Endocrine Denies palpitations Hematologic/Lymphatic Denies easy bruising Allergic/Immunologic Denies wheezing [facility] Medical History Healthy adult (Chronic) Surgical History History of laparoscopic appendectomy (Acute) Hx of appendectomy (Acute) Social History household members: spouse Smoking Status: Never smoker alcohol intake: never Social History household members: spouse Smoking Status: Never smoker alcohol intake: never Exam Narrative Exam Narrative: 42-year-old male, ill-appearing and in distress Initial Vital Signs Initial Vital Signs: Vital Signs Temperature 100.1 F H 04/09/18 17:51 Pulse Rate 110 H 04/09/18 17:51 Respiratory Rate 15 04/09/18 17:51 Blood Pressure 126/86 04/09/18 17:51 Pulse Oximetry 99 04/09/18 17:51 Const General: cooperative, well developed, in distress and ill appearing Nutritional Appearance: well nourished Orientation: alert, awake, oriented x3 and not confused [facility] Head: normocephalic and atraumatic Ears: external ears normal Nose: external nose normal Mouth: oral mucosae normal Teeth and gingiva: dentition normal Eyes General: appearance normal, both eyes and all related structures Eyelids: eyelids normal Conjunctivae: conjunctivae normal Sclera: sclerae normal Pupils: PERRL EOM: EOM intact bilaterally Neck Neck: normal visual inspection, trachea midline, No lymphadenopathy, No midline deformity and No JVD Lymphatic: No lymphedema Chest Chest: normal inspection of the chest Resp Effort & Inspection: normal respiratory effort, able to speak in complete sentences, no respiratory distress and no use of accessory muscles Auscultation: clear to auscultation bilaterally, no rales, no rhonchi and no wheezes Cardio Rate: regular rate Rhythm: regular rhythm Heart Sounds: no click, no gallops, no murmurs and no rubs Pulses: normal peripheral pulses GI Inspection: non-distended Palpation: soft, no hepatosplenomegaly, guarding, No pulsatile mass and tender (Right lower quadrant with rebound, worse with heel tap, minimal change psoas) Auscultation: absent bowel sounds Back/Spine/Pelvis Back: No CVA tenderness Cervical Spine: cervical ROM normal and No pain with cervical ROM Thoracic/Lumbar Spine: thoracic and lumbar spine normal to inspection Skin General: no rashes or lesions noted, No jaundice and No petechiae Neuro General: alert, oriented x3, gait normal and no focal motor deficits Speech: speech normal Extrem General: full ROM, no clubbing, cyanosis or edema, no pedal edema and no calf tenderness Psych Appearance: well kempt Mental Status: mental status grossly normal Attitude: cooperative Thought Content: normal and suicidality Judgment: judgment good Course Orders Ordered: ED Orders 04/09/18 20:05 Consult to Discharge Planning Routine Education, smoking cessation ONGOING 04/10/18 05:00 Complete Blood Count AUTO DIFF Routine Comprehensive Metabolic Panel Routine Acetaminophen (Tylenol) 975 mg PO Q6HR PRN PRN Reason: t>100.0, minor pain/headache Enoxaparin Sodium (Lovenox) 40 mg SUBCUT DAILY [facility] Last Admin: 04/09/18 23:00 Dose: Not Given Gabapentin (Neurontin) 300 mg PO BID [facility] Last Admin: 04/09/18 22:59 Dose: 300 mg Lactated Ringer's (Lactated Ringers) 1,000 mls @ 125 mls/hr IV CONT [facility] Last Admin: 04/09/18 20:39 Dose: 125 mls/hr Piperacillin/Tazobactam/Dextrose (Zosyn) 3.375 gm in 50 mls @ 100 mls/hr IV Q6H [facility] Last Admin: 04/10/18 02:35 Dose: 100 mls/hr Infusion: 04/09/18 23:00 Dose: 0 mls/hr Admin: 04/09/18 20:43 Dose: 100 mls/hr Ketorolac Tromethamine (Toradol) 30 mg IV Q6HR PRN PRN Reason: Pain, Moderate (4-6) Stop: 04/14/18 19:35 Last Admin: 04/10/18 02:38 Dose: 30 mg Admin: 04/09/18 20:43 Dose: 30 mg Morphine Sulfate (Morphine) 4 mg IV Q2H PRN PRN Reason: Pain, Severe (7-10) Naloxone HCl (Narcan) 0.2 mg IV Q2MIN PRN PRN Reason: Opiate Reversal Ondansetron HCl (Zofran) 4 mg IV Q4HR PRN PRN Reason: Nausea And Vomiting Discontinued Medications Hydromorphone HCl (Dilaudid) 0.5 mg IV Q15MIN PRN PRN Reason: Pain, Severe (7-10) Last Admin: 04/09/18 19:19 Dose: 0.5 mg Admin: 04/09/18 18:43 Dose: 0.5 mg Sodium Chloride (Normal Saline 0.9%) 1,000 mls @ 1,000 mls/hr IV BOLUS ONE Stop: 04/09/18 19:17 Last Infusion: 04/09/18 19:53 Dose: 0 mls/hr Admin: 04/09/18 18:43 Dose: 1,000 mls/hr Ondansetron HCl (Zofran) 4 mg IV Q4HR PRN PRN Reason: Nausea And Vomiting Last Admin: 04/09/18 18:43 Dose: 4 mg Consultations Consultation #1: Maddy consulted, will see patient at bedside Time: 18:30 Vital Signs - 8 hr 04/10/18 00:10 Temperature 98.3 F Pulse Rate 65 Respiratory Rate 20 Blood Pressure 137/80 Pulse Oximetry 99 MDM - Abdominal Pain Lab Data Result diagrams: 04/09/18 18:30 04/09/18 18:30 Lab Results 04/09/18 04/09/18 04/09/18 Range/Units 18:30 18:30 18:30 WBC 7.9 (4.5-11.0) X10^3/uL RBC 4.18 L (4.5-5.9) X10^6/uL Hgb 12.9 L (13.5-17.5) g/dL Hct 37.2 L (41-53) % MCV 89.0 (80-100) fL MCH 30.8 (26-34) PG MCHC 34.6 (30-36) % RDW 13.1 (11.6-14.8) % Plt Count 236 (150-400) X10^3/uL Neut % (Auto) 73.4 (50-75) % Lymph % (Auto) 15.7 L (25-40) % [place] % (Auto) 8.0 (3-14) % Eos % (Auto) 2.3 (2-4) % Baso % (Auto) 0.6 (0-2) % Neut # (Auto) 5800 (2881-4647) /uL Lymph # (Auto) 1200 (8916-2949) /uL [place] # (Auto) 600 (0-900) /uL Eos # (Auto) 200 (0-450) /uL Baso # (Auto) 0 (0-100) /uL PT 13.7 H (10.1-12.7) SECONDS INR 1.2 (0.9-1.3) APTT 29 D (26.4-36.2) SECONDS Sodium (137-145) mmol/L Potassium (3.4-5.1) mmol/L Chloride (98-107) mmol/L Carbon Dioxide (22-32) mmol/L BUN (9-20) mg/dL Creatinine (0.66-1.25) mg/dL Estimated GFR (>60) mL/min BUN/Creatinine Ratio (6-22) Glucose (70-100) mg/dL Lactate (0.7-2.1) mmol/L Calcium (8.4-10.2) mg/dL Total Bilirubin (0.2-1.3) mg/dL AST (17-59) IU/L ALT (21-72) IU/L Alkaline Phosphatase (38-126) U/L Total Protein (6.3-8.2) g/dL Albumin (3.5-5.0) g/dL Globulin (1.7-4.1) g/dL Albumin/Globulin Ratio (1.0-2.8) Lipase (23-300) U/L Procalcitonin 1.15 H (<0.5) ng/mL 04/09/18 04/09/18 Range/Units 18:30 18:30 WBC (4.5-11.0) X10^3/uL RBC (4.5-5.9) X10^6/uL Hgb (13.5-17.5) g/dL Hct (41-53) % MCV (80-100) fL MCH (26-34) PG MCHC (30-36) % RDW (11.6-14.8) % Plt Count (150-400) X10^3/uL Neut % (Auto) (50-75) % Lymph % (Auto) (25-40) % [place] % (Auto) (3-14) % Eos % (Auto) (2-4) % Baso % (Auto) (0-2) % Neut # (Auto) (4420-2042) /uL Lymph # (Auto) (4564-9113) /uL [place] # (Auto) (0-900) /uL Eos # (Auto) (0-450) /uL Baso # (Auto) (0-100) /uL PT (10.1-12.7) SECONDS INR (0.9-1.3) APTT (26.4-36.2) SECONDS Sodium 139 (137-145) mmol/L Potassium 3.3 L (3.4-5.1) mmol/L Chloride 100 (98-107) mmol/L Carbon Dioxide 27 (22-32) mmol/L BUN 10 (9-20) mg/dL Creatinine 1.00 (0.66-1.25) mg/dL Estimated GFR > 60.0 (>60) mL/min BUN/Creatinine Ratio 10.0 (6-22) Glucose 89 (70-100) mg/dL Lactate 1.0 (0.7-2.1) mmol/L Calcium 8.9 (8.4-10.2) mg/dL Total Bilirubin 0.5 (0.2-1.3) mg/dL AST 19 (17-59) IU/L ALT 21 (21-72) IU/L Alkaline Phosphatase 63 (38-126) U/L Total Protein 7.2 (6.3-8.2) g/dL Albumin 4.1 (3.5-5.0) g/dL Globulin 3.1 (1.7-4.1) g/dL Albumin/Globulin Ratio 1.3 (1.0-2.8) Lipase 36 (23-300) U/L Procalcitonin (<0.5) ng/mL Discharge Plan Departure Patient Disposition: Admitted as Observation Clinical Impression: Pain at surgical site, Fever Discharge Date/Time: 04/09/18 19:56 Interventions: ED Discharge Assessment Last Done: 04/09/18 19:48 Admit Date/Time: 04/09/18 19:19 Admit Provider: Keith Castañeda
[2018-04-09 18:43] LABS: Add Manual Diff / Slide Review NO; Basophils Absolute Auto 0 /uL (0-100); Basophils Percent Auto 0.6 % (0-2); Eosinophils Absolute Auto 200 /uL (0-450); Eosinophils Percent Auto 2.3 % (2-4); Hematocrit 37.2 % (41-53); Hemoglobin 12.9 g/dL (13.5-17.5); Lymphocytes Absolute Auto 1200 /uL (1100-4500); Lymphocytes Percent Auto 15.7 % (25-40); Mean Corpuscular HGB Conc 34.6 % (30-36); Mean Corpuscular Hemoglobin 30.8 PG (26-34); Monocytes Absolute Auto 600 /uL (0-900); Neutrophils Absolute Auto 5800 /uL (1500-7000); Neutrophils Percent Auto 73.4 % (50-75); Platelet Count 236 X10^3/uL (150-400); Red Blood Cell Count 4.18 X10^6/uL (4.5-5.9); Red Cell Distribution Width 13.1 % (11.6-14.8); White Blood Cell Count 7.9 X10^3/uL (4.5-11.0)
[2018-04-09] MEDS: HYDROMORPHONE 1 MG INJ 0.5 MG IV ×2 (18:43→19:19)
[2018-04-09] MEDS: ONDANSETRON 4 MG/2 ML INJ IV (18:43)
[2018-04-09] MEDS: SODIUM CHLORIDE 0.9% 1,000 ML 1000 ML IV (18:43)
--- NOTE | 2018-04-09 18:45 | ED_ITS ---
HPI - Abdominal Pain General Chief Complaint: Abdominal Pain Stated Complaint: ABD PAIN S/P APPENDECTOMY Time Seen by Provider: 04/09/18 18:06 Source: patient Mode of arrival: ambulatory Limitations: no limitations History of Present Illness HPI narrative: 42-year-old male, nonsmoker otherwise largely healthy presents with increasing pain, fever and shaking chills over the course of the day. He had a laparoscopic appy a few days ago was just discharged yesterday. Over the course of the day the patient has had no flatus, no bowel movements, increasing right lower quadrant pain, now much worse with any movement, sneezing or cough. He has intense nausea though minimal vomiting. Patient has had oxycodone with a small amount of water at 4:00 p.m. has small lunch at noon. He feels worse today than prior to the surgery MD complaint: abdominal pain Onset (ago): hour(s) Pain Consistency: constant Location: RLQ Severity: severe Quality: cramping and stabbing Radiation: none Migration to: no migration Relieving factors: rest Exacerbating factors: movement Associated symptoms: nausea, fever and chills Related Data Previous Rx's Medication Instructions Recorded acetaminophen 650 mg PO Q6HR PRN #60 tab 04/08/18 docusate sodium 100 mg PO BID #20 cap 04/08/18 levofloxacin [Levaquin] 750 mg PO DAILY #5 tab 04/08/18 metronidazole [Flagyl] 500 mg PO TID #15 tab 04/08/18 oxycodone 5 mg PO Q3HR PRN #20 tab 04/08/18 sennosides [senna] 8.6 mg PO BEDTIME #10 tab 04/08/18 Allergies Allergy/AdvReac Type Severity Reaction Status Date / Time No Known Drug Allergies Allergy Verified 04/09/18 17:51 Review of Systems Constitutional Reports chills, Reports fever(s), Denies lethargy and Denies weakness Eyes Denies change in vision, Denies eye discharge, Denies irritation and Denies loss of vision ENT Ears, Nose, Mouth, and Throat: Denies change in voice, Denies neck pain and Denies sore throat Cardiovascular Denies chest pain, Denies irregular heart rhythm, Denies lightheadedness, Denies palpitations, Denies dyspnea, Denies dyspnea on exertion and Denies orthopnea Respiratory Denies cough, Denies dyspnea, Denies dyspnea on exertion and Denies wheezing Gastrointestinal Gastrointestinal: Reports abdominal pain, Denies change in bowel habits, Reports change in stool character, Denies diarrhea, Reports nausea and Denies vomiting Genitourinary Denies hematuria, Denies flank pain, Denies urinary incontinence and Denies urinary urgency Musculoskeletal Denies neck pain Integumentary/Breasts Denies pruritus, Denies erythema, Denies rash and Denies wounds Neurologic Denies confusion, Denies loss of vision and Denies weakness Psychiatric Denies anxiety, Denies confusion, Denies depression, Denies homicidal ideation and Denies suicidal ideation Endocrine Denies palpitations Hematologic/Lymphatic Denies easy bruising Allergic/Immunologic Denies wheezing [facility] Medical History Healthy adult (Chronic) Surgical History History of laparoscopic appendectomy (Acute) Hx of appendectomy (Acute) Social History household members: spouse Smoking Status: Never smoker alcohol intake: never Social History household members: spouse Smoking Status: Never smoker alcohol intake: never Exam Narrative Exam Narrative: 42-year-old male, ill-appearing and in distress Initial Vital Signs Initial Vital Signs: Vital Signs Temperature 100.1 F H 04/09/18 17:51 Pulse Rate 110 H 04/09/18 17:51 Respiratory Rate 15 04/09/18 17:51 Blood Pressure 126/86 04/09/18 17:51 Pulse Oximetry 99 04/09/18 17:51 Const General: cooperative, well developed, in distress and ill appearing Nutritional Appearance: well nourished Orientation: alert, awake, oriented x3 and not confused [facility] Head: normocephalic and atraumatic Ears: external ears normal Nose: external nose normal Mouth: oral mucosae normal Teeth and gingiva: dentition normal Eyes General: appearance normal, both eyes and all related structures Eyelids: eyelids normal Conjunctivae: conjunctivae normal Sclera: sclerae normal Pupils: PERRL EOM: EOM intact bilaterally Neck Neck: normal visual inspection, trachea midline, No lymphadenopathy, No midline deformity and No JVD Lymphatic: No lymphedema Chest Chest: normal inspection of the chest Resp Effort & Inspection: normal respiratory effort, able to speak in complete sentences, no respiratory distress and no use of accessory muscles Auscultation: clear to auscultation bilaterally, no rales, no rhonchi and no wheezes Cardio Rate: regular rate Rhythm: regular rhythm Heart Sounds: no click, no gallops, no murmurs and no rubs Pulses: normal peripheral pulses GI Inspection: non-distended Palpation: soft, no hepatosplenomegaly, guarding, No pulsatile mass and tender ( Right lower quadrant with rebound, worse with heel tap, minimal change psoas) Auscultation: absent bowel sounds Back/Spine/Pelvis Back: No CVA tenderness Cervical Spine: cervical ROM normal and No pain with cervical ROM Thoracic/Lumbar Spine: thoracic and lumbar spine normal to inspection Skin General: no rashes or lesions noted, No jaundice and No petechiae Neuro General: alert, oriented x3, gait normal and no focal motor deficits Speech: speech normal Extrem General: full ROM, no clubbing, cyanosis or edema, no pedal edema and no calf tenderness Psych Appearance: well kempt Mental Status: mental status grossly normal Attitude: cooperative Thought Content: normal and suicidality Judgment: judgment good Course Orders Ordered: ED Orders 04/09/18 20:05 Consult to Discharge Planning Routine Education, smoking cessation ONGOING 04/10/18 05:00 Complete Blood Count AUTO DIFF Routine Comprehensive Metabolic Panel Routine Acetaminophen (Tylenol) 975 mg PO Q6HR PRN PRN Reason: t>100.0, minor pain/headache Enoxaparin Sodium (Lovenox) 40 mg SUBCUT DAILY [facility] Last Admin: 04/09/18 23:00 Dose: Not Given Gabapentin (Neurontin) 300 mg PO BID [facility] Last Admin: 04/09/18 22:59 Dose: 300 mg Lactated Ringer's (Lactated Ringers) 1,000 mls @ 125 mls/hr IV CONT [facility] Last Admin: 04/09/18 20:39 Dose: 125 mls/hr Piperacillin/Tazobactam/Dextrose (Zosyn) 3.375 gm in 50 mls @ 100 mls/hr IV Q6H [facility] Last Admin: 04/10/18 02:35 Dose: 100 mls/hr Infusion: 04/09/18 23:00 Dose: 0 mls/hr Admin: 04/09/18 20:43 Dose: 100 mls/hr Ketorolac Tromethamine (Toradol) 30 mg IV Q6HR PRN PRN Reason: Pain, Moderate (4-6) Stop: 04/14/18 19:35 Last Admin: 04/10/18 02:38 Dose: 30 mg Admin: 04/09/18 20:43 Dose: 30 mg Morphine Sulfate (Morphine) 4 mg IV Q2H PRN PRN Reason: Pain, Severe (7-10) Naloxone HCl (Narcan) 0.2 mg IV Q2MIN PRN PRN Reason: Opiate Reversal Ondansetron HCl (Zofran) 4 mg IV Q4HR PRN PRN Reason: Nausea And Vomiting Discontinued Medications Hydromorphone HCl (Dilaudid) 0.5 mg IV Q15MIN PRN PRN Reason: Pain, Severe (7-10) Last Admin: 04/09/18 19:19 Dose: 0.5 mg Admin: 04/09/18 18:43 Dose: 0.5 mg Sodium Chloride (Normal Saline 0.9%) 1,000 mls @ 1,000 mls/hr IV BOLUS ONE Stop: 04/09/18 19:17 Last Infusion: 04/09/18 19:53 Dose: 0 mls/hr Admin: 04/09/18 18:43 Dose: 1,000 mls/hr Ondansetron HCl (Zofran) 4 mg IV Q4HR PRN PRN Reason: Nausea And Vomiting Last Admin: 04/09/18 18:43 Dose: 4 mg Consultations Consultation #1: Maddy consulted, will see patient at bedside Time: 18:30 Vital Signs - 8 hr 04/10/18 00:10 Temperature 98.3 F Pulse Rate 65 Respiratory Rate 20 Blood Pressure 137/80 Pulse Oximetry 99 MDM - Abdominal Pain Lab Data Result diagrams: 04/09/18 18:30 04/09/18 18:30 Lab Results 04/09/18 04/09/18 04/09/18 Range/Units 18:30 18:30 18:30 WBC 7.9 (4.5-11.0) X10^3/uL RBC 4.18 L (4.5-5.9) X10^6/uL Hgb 12.9 L (13.5-17.5) g/dL Hct 37.2 L (41-53) % MCV 89.0 (80-100) fL MCH 30.8 (26-34) PG MCHC 34.6 (30-36) % RDW 13.1 (11.6-14.8) % Plt Count 236 (150-400) X10^3/uL Neut % (Auto) 73.4 (50-75) % Lymph % (Auto) 15.7 L (25-40) % [place] % (Auto) 8.0 (3-14) % Eos % (Auto) 2.3 (2-4) % Baso % (Auto) 0.6 (0-2) % Neut # (Auto) 5800 (6851-8783) /uL Lymph # (Auto) 1200 (1599-0020) /uL [place] # (Auto) 600 (0-900) /uL Eos # (Auto) 200 (0-450) /uL Baso # (Auto) 0 (0-100) /uL PT 13.7 H (10.1-12.7) SECONDS INR 1.2 (0.9-1.3) APTT 29 D (26.4-36.2) SECONDS Sodium (137-145) mmol/L Potassium (3.4-5.1) mmol/L Chloride (98-107) mmol/L Carbon Dioxide (22-32) mmol/L BUN (9-20) mg/dL Creatinine (0.66-1.25) mg/dL Estimated GFR (>60) mL/min BUN/Creatinine Ratio (6-22) Glucose (70-100) mg/dL Lactate (0.7-2.1) mmol/L Calcium (8.4-10.2) mg/dL Total Bilirubin (0.2-1.3) mg/dL AST (17-59) IU/L ALT (21-72) IU/L Alkaline Phosphatase (38-126) U/L Total Protein (6.3-8.2) g/dL Albumin (3.5-5.0) g/dL Globulin (1.7-4.1) g/dL Albumin/Globulin Ratio (1.0-2.8) Lipase (23-300) U/L Procalcitonin 1.15 H (<0.5) ng/mL 04/09/18 04/09/18 Range/Units 18:30 18:30 WBC (4.5-11.0) X10^3/uL RBC (4.5-5.9) X10^6/uL Hgb (13.5-17.5) g/dL Hct (41-53) % MCV (80-100) fL MCH (26-34) PG MCHC (30-36) % RDW (11.6-14.8) % Plt Count (150-400) X10^3/uL Neut % (Auto) (50-75) % Lymph % (Auto) (25-40) % [place] % (Auto) (3-14) % Eos % (Auto) (2-4) % Baso % (Auto) (0-2) % Neut # (Auto) (6352-5847) /uL Lymph # (Auto) (1543-9126) /uL [place] # (Auto) (0-900) /uL Eos # (Auto) (0-450) /uL Baso # (Auto) (0-100) /uL PT (10.1-12.7) SECONDS INR (0.9-1.3) APTT (26.4-36.2) SECONDS Sodium 139 (137-145) mmol/L Potassium 3.3 L (3.4-5.1) mmol/L Chloride 100 (98-107) mmol/L Carbon Dioxide 27 (22-32) mmol/L BUN 10 (9-20) mg/dL Creatinine 1.00 (0.66-1.25) mg/dL Estimated GFR > 60.0 (>60) mL/min BUN/Creatinine Ratio 10.0 (6-22) Glucose 89 (70-100) mg/dL Lactate 1.0 (0.7-2.1) mmol/L Calcium 8.9 (8.4-10.2) mg/dL Total Bilirubin 0.5 (0.2-1.3) mg/dL AST 19 (17-59) IU/L ALT 21 (21-72) IU/L Alkaline Phosphatase 63 (38-126) U/L Total Protein 7.2 (6.3-8.2) g/dL Albumin 4.1 (3.5-5.0) g/dL Globulin 3.1 (1.7-4.1) g/dL Albumin/Globulin Ratio 1.3 (1.0-2.8) Lipase 36 (23-300) U/L Procalcitonin (<0.5) ng/mL Discharge Plan Departure Patient Disposition: Admitted as Observation Clinical Impression: Pain at surgical site, Fever Discharge Date/Time: 04/09/18 19:56 Interventions: ED Discharge Assessment Last Done: 04/09/18 19:48 Admit Date/Time: 04/09/18 19:19 Admit Provider: Keith Castañeda
[2018-04-09 18:53] LABS: INR 1.2 (0.9-1.3); Prothrombin Time 13.7 SECONDS (10.1-12.7)
[2018-04-09 18:55] LABS: PTT Partial Thromboplastin Tim 29 SECONDS (26.4-36.2)
[2018-04-09 18:58] LABS: Alanine Aminotransferase 21 IU/L (21-72); Albumin 4.1 g/dL (3.5-5.0); Albumin Globulin Ratio 1.3 (1.0-2.8); Alkaline Phosphatase 63 U/L (38-126); Aspartate Aminotransferase 19 IU/L (17-59); Bilirubin Total 0.5 mg/dL (0.2-1.3); Blood Urea Nitrogen 10 mg/dL (9-20); Calcium 8.9 mg/dL (8.4-10.2); Carbon Dioxide 27 mmol/L (22-32); Chloride 100 mmol/L (98-107); Estimated Glomerular Filt Rate > 60.0 mL/min (>60); Globulin 3.1 g/dL (1.7-4.1); Glucose 89 mg/dL (70-100); HEMOLYSIS < 15 (0-50); Lipase 36 U/L (23-300); Potassium 3.3 mmol/L (3.4-5.1); Sodium 139 mmol/L (137-145); Total Protein 7.2 g/dL (6.3-8.2)
[2018-04-09 19:17] VITALS: BP 135/84; PULSE 85; RESP 16; TEMP 37.3; O2SAT 100
[2018-04-09 19:39] LABS: Procalcitonin 1.15 ng/mL (<0.5)
--- NOTE | 2018-04-09 19:42 | PM.HP.1 ---
History of Present Illness Date Patient Seen: 04/09/18 Time Patient Seen: 19:12 Chief complaint: ABD PAIN S/P APPENDECTOMY Narrative: The patient is a gentleman who was treated recently with a laparoscopic appendectomy for acute suppurative appendicitis. He went home after being in the hospital a day on Levaquin and Flagyl and pain medication. He said he felt great when he went home. He ate well. No nausea. That was yesterday. Today he woke and felt a little uncomfortable. He ate a full breakfast. Developed nausea. He had pain in his right lower abdomen similar to his appendicitis but perhaps a little more intense as the day has worn on. He took his temperature throughout the day and it gradually giuliana to just under 101. He also developed chills and sweats. He came to the emergency room and was evaluated. I was asked to see him. Patient History Medical History Healthy adult (Chronic) Surgical History History of laparoscopic appendectomy (Acute) Hx of appendectomy (Acute) Social History household members: spouse Smoking Status: Never smoker Family & Social History Social History: household members spouse and 2-year-old Tobacco & Substance use: Smoking Status Never smoker alcohol intake frequency 0-2 drinks per day Substance Use Type does not use Meds Home Medications Medication Instructions Recorded Confirmed Type acetaminophen 650 mg PO Q6HR PRN #60 tab 04/08/18 Rx docusate sodium 100 mg PO BID #20 cap 04/08/18 Rx levofloxacin [Levaquin] 750 mg PO DAILY #5 tab 04/08/18 Rx metronidazole [Flagyl] 500 mg PO TID #15 tab 04/08/18 Rx oxycodone 5 mg PO Q3HR PRN #20 tab 04/08/18 Rx sennosides [senna] 8.6 mg PO BEDTIME #10 tab 04/08/18 Rx Allergies Allergy/AdvReac Type Severity Reaction Status Date / Time No Known Drug Allergies Allergy Verified 04/09/18 17:51 Review of Systems Review of Systems No cough or cold. No heart problems. No burning when he pees or blood in his urine. No kidney stones in the past. Did have some diarrhea since his operation. No blood in his stool. 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 He is lying rather still on the bed. Eyes are nonicteric. Lungs are clear to auscultation without rales or rhonchi. Heart regular rate and rhythm without murmur gallop. His abdomen is flat and soft throughout. He has tenderness in the right lower quadrant that is quite localized. Incision at the umbilicus is bruised but otherwise unremarkable. There is no cellulitis of his abdominal incisions. No unusual tenderness near them. Objective Labs Result Diagrams: 04/09/18 18:30 04/09/18 18:30 Labs: Laboratory Results - last 24 hr 04/09/18 04/09/18 04/09/18 18:30 18:30 18:30 WBC 7.9 RBC 4.18 L Hgb 12.9 L Hct 37.2 L MCV 89.0 MCH 30.8 MCHC 34.6 RDW 13.1 Plt Count 236 Neut % (Auto) 73.4 Lymph % (Auto) 15.7 L [place] % (Auto) 8.0 Eos % (Auto) 2.3 Baso % (Auto) 0.6 Neut # (Auto) 5800 Lymph # (Auto) 1200 [place] # (Auto) 600 Eos # (Auto) 200 Baso # (Auto) 0 PT 13.7 H INR 1.2 APTT 29 D Sodium Potassium Chloride Carbon Dioxide BUN Creatinine Estimated GFR BUN/Creatinine Ratio Glucose Lactate Calcium Total Bilirubin AST ALT Alkaline Phosphatase Total Protein Albumin Globulin Albumin/Globulin Ratio Lipase Procalcitonin 1.15 H 04/09/18 04/09/18 18:30 18:30 WBC RBC Hgb Hct MCV MCH MCHC RDW Plt Count Neut % (Auto) Lymph % (Auto) [place] % (Auto) Eos % (Auto) Baso % (Auto) Neut # (Auto) Lymph # (Auto) [place] # (Auto) Eos # (Auto) Baso # (Auto) PT INR APTT Sodium 139 Potassium 3.3 L Chloride 100 Carbon Dioxide 27 BUN 10 Creatinine 1.00 Estimated GFR > 60.0 BUN/Creatinine Ratio 10.0 Glucose 89 Lactate 1.0 Calcium 8.9 Total Bilirubin 0.5 AST 19 ALT 21 Alkaline Phosphatase 63 Total Protein 7.2 Albumin 4.1 Globulin 3.1 Albumin/Globulin Ratio 1.3 Lipase 36 Procalcitonin Assessment & Plan Plan: Assessment/Plan Narrative: Patient with a post appendectomy fever and chills and sweats. His plain x-rays reveal a normal gas pattern. There is no free air. White count is normal. There are 75 segs. His temperature was as high as 100.1? in the emergency room. He does have significant localized tenderness. Patient was treated with Levaquin and Flagyl during his hospitalization. He was also sent home on them. We will change his antibiotics to Zosyn 3.375 g q.6 hours. This should cover a broad array of organisms including enterococcus. We will use Lovenox for DVT prophylaxis. Also sequential compression devices. Bowel rest. I considered a CT scan however decided against it at this time. It most likely will show postoperative changes and may show fluid in the pelvis. Both of those things be expected to be present. He does not have free air and so is unlikely to a blown out his stump. He also has very localized tenderness and so it is unlikely that he has blown out his stump. I would expect that to cause free air and or diffuse peritonitis which he does not have. I would also expect his white count to be higher. I will repeat labs in the morning. IV fluids. Pain control.
[2018-04-09 19:50] VITALS: BP 143/94; PULSE 103; RESP 18; TEMP 37.3; O2SAT 99
[2018-04-09 20:08] VITALS: BMI 26.6
[2018-04-09] MEDS: LACTATED RINGERS 1,000 ML 125 ML IV (20:39)
[2018-04-09] MEDS: PIPERACILLIN-TAZO 3.375 GM/50 ML FROZ.PIGGY IV (20:43)
[2018-04-09] MEDS: KETOROLAC 30 MG/ML VIAL IV (20:43)
[2018-04-09] MEDS: GABAPENTIN 300 MG CAPSULE PO (22:59)
--- NOTE | 2018-04-10 | DI.CT.S_ITS ---
PROCEDURE: CT ABDOMEN PELVIS W CON INDICATIONS: fever/chills/new pain post laparoscopic appendectomy. TECHNIQUE: After the administration of oral and intravenous contrast, 5 mm thick sections acquired from the diaphragms to the symphysis. 5 mm thick coronal and sagittal reformats were performed. For radiation dose reduction, the following was used: automated exposure control, adjustment of mA and/or kV according to patient size. COMPARISON: [facility], CT, CT ABDOMEN PELVIS W CON, 04/06/2018, 16:39. FINDINGS: Image quality: Excellent. ABDOMEN: Lung bases: Atelectasis noted in the dependent portion the lung bases. Heart size is normal. Solid organs: Liver is normal in size and enhancement. Focal fatty infiltration of the liver adjacent to the falciform ligament. Small hypoattenuating lesion measuring approximately 5 mm in diameter in the posterior-inferior subsegment of the right lobe liver is stable compared to the prior examination. Gallbladder is within normal limits. Biliary system is non-dilated. Pancreas enhances normally. Spleen is normal in size and enhancement. No adrenal nodules. Kidneys are normal in size and enhancement, without hydronephrosis. Peritoneum and bowel: Stomach, small bowel, and colon loops are normal in caliber and wall thickness. Postsurgical changes compatible with appendectomy noted in the interval since prior examination. Mild inflammatory changes and trace free fluid noted adjacent to the cecum likely related to recent appendectomy. There is a small, approximately 1.4 cm in diameter fluid collection in the right lower quadrant with partial, peripheral enhancement may represent early developing abscess (series 3, image 66; series 4, image 23). Small, approximately 8mm diverticulum involving the terminal ileum is stable. Nodes and vessels: No retroperitoneal or mesenteric adenopathy. Aorta and inferior vena cava are normal in caliber. Miscellaneous: No ventral hernias. PELVIS: Genitourinary: Bladder wall thickness is normal. Miscellaneous: No inguinal hernias or adenopathy. Bones: No suspicious bony lesions. No vertebral body compression fractures. IMPRESSION: 1. Status post appendectomy. 2. Mild inflammatory changes and trace free fluid noted adjacent to the cecum likely related to recent appendectomy. 3. Small 1.4 cm in diameter fluid collection in the right lower quadrant inferior and anterior to the cecum which has partial, peripheral enhancement concerning for early abscess formation.. Dictated by: Lesly De León MD, PhD on 04/10/2018 at 12:15 Approved by: Lesly De León MD, PhD on 04/10/2018 at 12:24
--- NOTE | 2018-04-10 00:02 | PC.ADMIT ---
1950- pt arrived to floor. fluids stopped. new order and new fluids hung per md order. pt given prn torodol. this helped tremendously with pain per pt reports. pt completed admissions assessments on his own. given call light. and oral swabs to moisten mouth. Pt tolerating fluids well. PT uses call light. ambulates around room steady gait. encouraged to call if needing assistance. will continue to monitor pt for safety. Admission Note: The patient,Ashu Iniguez,42 y/o, was given written information regarding hospital policies, unit procedures and contact persons. Patient's smoking status: Never smoker. Vital Signs - 8 hr 04/09/18 17:51 04/09/18 18:23 04/09/18 19:17 Temperature 100.1 F H 99.2 F 99.1 F Pulse Rate 110 H 91 H 85 Respiratory Rate 15 17 16 Blood Pressure 126/86 Blood Pressure [Left Arm] 141/84 H 135/84 Pulse Oximetry 99 100 100 04/09/18 19:50 Temperature 99.1 F Pulse Rate 103 H Respiratory Rate 18 Blood Pressure 143/94 H Blood Pressure [Left Arm] Pulse Oximetry 99
[2018-04-10 00:10] VITALS: BP 137/80; PULSE 65; RESP 20; TEMP 36.8; O2SAT 99
--- NOTE | 2018-04-10 00:49 | PC.NURSE ---
Shipping Manager Note: 0015: Awake, resting in bed. Pt states the Toradol decreased his pain level which he states is 3/10 at this time. IV in place in lt AC with LR infusing at 125cc/hr. SCDs placed at this time. Abdomen is soft and distended, and bowel tones are active. Pt is tender in region of rt lower quadrant of abdomen. Pt reminded to call before getting up due to SCDs and IV pole.
[2018-04-10] MEDS: PIPERACILLIN-TAZO 3.375 GM/50 ML FROZ.PIGGY IV ×4 (02:35→20:09)
[2018-04-10] MEDS: KETOROLAC 30 MG/ML VIAL IV ×3 (02:38→20:09)
[2018-04-10 05:35] VITALS: BP 117/73; PULSE 67; RESP 20; TEMP 36.4; O2SAT 96
[2018-04-10] MEDS: LACTATED RINGERS 1,000 ML 125 ML IV (05:49)
[2018-04-10 06:00] LABS: Add Manual Diff / Slide Review NO; Basophils Absolute Auto 100 /uL (0-100); Basophils Percent Auto 1.1 % (0-2); Eosinophils Absolute Auto 200 /uL (0-450); Eosinophils Percent Auto 3.6 % (2-4); Hemoglobin 11.9 g/dL (13.5-17.5); Lymphocytes Absolute Auto 1300 /uL (1100-4500); Lymphocytes Percent Auto 18.2 % (25-40); Mean Corpuscular Hemoglobin 30.6 PG (26-34); Mean Corpuscular Volume 90.1 fL (80-100); Monocytes Absolute Auto 800 /uL (0-900); Monocytes Percent Auto 11.6 % (3-14); Neutrophils Absolute Auto 4600 /uL (1500-7000); Neutrophils Percent Auto 65.5 % (50-75); Platelet Count 219 X10^3/uL (150-400); Red Blood Cell Count 3.89 X10^6/uL (4.5-5.9); Red Cell Distribution Width 12.8 % (11.6-14.8)
[2018-04-10 06:14] LABS: Alanine Aminotransferase 23 IU/L (21-72); Albumin 3.2 g/dL (3.5-5.0); Albumin Globulin Ratio 1.1 (1.0-2.8); Alkaline Phosphatase 48 U/L (38-126); Aspartate Aminotransferase 13 IU/L (17-59); Bilirubin Total 0.6 mg/dL (0.2-1.3); Blood Urea Nitrogen 10 mg/dL (9-20); Calcium 8.4 mg/dL (8.4-10.2); Carbon Dioxide 28 mmol/L (22-32); Chloride 103 mmol/L (98-107); Estimated Glomerular Filt Rate > 60.0 mL/min (>60); Globulin 2.8 g/dL (1.7-4.1); Glucose 86 mg/dL (70-100); HEMOLYSIS < 15 (0-50); Potassium 3.9 mmol/L (3.4-5.1); Sodium 138 mmol/L (137-145)
[2018-04-10 08:00] VITALS: BP 145/82; PULSE 62; RESP 16; TEMP 36.4; O2SAT 100
[2018-04-10] MEDS: DEXTROSE 5%-0.45% NS 1,000 ML 100 ML IV ×2 (10:53→21:11)
[2018-04-10] MEDS: PANTOPRAZOLE 40 MG TABLET PO (14:36)
[2018-04-10 15:43] VITALS: BP 133/84; PULSE 71; RESP 18; TEMP 37.4; O2SAT 97
--- NOTE | 2018-04-10 16:27 | PC.NURSE ---
Evening Shift Pt reported having spasms in left AC PIV, will offer a warm pack with ABX administration for comfort. No s/s of infiltration/phlebitis.
--- NOTE | 2018-04-10 18:50 | P.PN_ITS ---
Subjective Date Patient Seen: 04/10/18 Time Patient Seen: 13:01 Interval history: Patient is seen twice today. He is feeling better than yesterday. Still has some right lower quadrant pain. Has been up walking. Exam Vital Signs (past 8 hours): - 04/10/18 15:43 Temperature 99.3 F Pulse Rate 71 Respiratory Rate 18 Blood Pressure 133/84 Pulse Oximetry 97 Oxygen Delivery Method Room Air Oxygen Flow Rate 0 Narrative Exam Narrative: Operative no apparent distress. Lungs are clear. Abdomen is soft there is localized tenderness in the right lower quadrant. The wounds look fine. Unchanged from yesterday. He has been afebrile all day. White blood cell count is normal with 74 segs in the differential. Electrolytes are normal. Objective Labs Result Diagrams: 04/10/18 05:33 04/10/18 05:33 Labs: Laboratory Results - last 24 hr 04/09/18 04/09/18 04/09/18 18:30 18:30 18:30 WBC 7.9 RBC 4.18 L Hgb 12.9 L Hct 37.2 L MCV 89.0 MCH 30.8 MCHC 34.6 RDW 13.1 Plt Count 236 Neut % (Auto) 73.4 Lymph % (Auto) 15.7 L [place] % (Auto) 8.0 Eos % (Auto) 2.3 Baso % (Auto) 0.6 Neut # (Auto) 5800 Lymph # (Auto) 1200 [place] # (Auto) 600 Eos # (Auto) 200 Baso # (Auto) 0 PT 13.7 H INR 1.2 APTT 29 D Sodium Potassium Chloride Carbon Dioxide BUN Creatinine Estimated GFR BUN/Creatinine Ratio Glucose Lactate Calcium Total Bilirubin AST ALT Alkaline Phosphatase Total Protein Albumin Globulin Albumin/Globulin Ratio Lipase Procalcitonin 1.15 H 04/09/18 04/09/18 04/10/18 18:30 18:30 05:33 WBC 7.0 RBC 3.89 L Hgb 11.9 L Hct 35.0 L MCV 90.1 MCH 30.6 MCHC 34.0 RDW 12.8 Plt Count 219 Neut % (Auto) 65.5 Lymph % (Auto) 18.2 L [place] % (Auto) 11.6 Eos % (Auto) 3.6 Baso % (Auto) 1.1 Neut # (Auto) 4600 Lymph # (Auto) 1300 [place] # (Auto) 800 Eos # (Auto) 200 Baso # (Auto) 100 PT INR APTT Sodium 139 Potassium 3.3 L Chloride 100 Carbon Dioxide 27 BUN 10 Creatinine 1.00 Estimated GFR > 60.0 BUN/Creatinine Ratio 10.0 Glucose 89 Lactate 1.0 Calcium 8.9 Total Bilirubin 0.5 AST 19 ALT 21 Alkaline Phosphatase 63 Total Protein 7.2 Albumin 4.1 Globulin 3.1 Albumin/Globulin Ratio 1.3 Lipase 36 Procalcitonin 04/10/18 05:33 WBC RBC Hgb Hct MCV MCH MCHC RDW Plt Count Neut % (Auto) Lymph % (Auto) [place] % (Auto) Eos % (Auto) Baso % (Auto) Neut # (Auto) Lymph # (Auto) [place] # (Auto) Eos # (Auto) Baso # (Auto) PT INR APTT Sodium 138 Potassium 3.9 Chloride 103 Carbon Dioxide 28 BUN 10 Creatinine 1.00 Estimated GFR > 60.0 BUN/Creatinine Ratio 10.0 Glucose 86 Lactate Calcium 8.4 Total Bilirubin 0.6 AST 13 L ALT 23 Alkaline Phosphatase 48 Total Protein 6.0 L Albumin 3.2 L Globulin 2.8 Albumin/Globulin Ratio 1.1 Lipase Procalcitonin Assessment & Plan Post-op Postoperative Postoperative status narrative: I ordered a CT earlier today. I decided that I was concerned that he might have bled intraperitoneal E given his present hematocrit. Also I wanted to clarify whether an abscess was present. Postoperative plan narrative: It appears the patient may have a 1.4 cm abscess in the right lower quadrant not far from the operative site. There is no evidence of a perforation and no evidence of intraperitoneal bleed meaning that the hematocrit of 35 is Requip liberation and and dilution. Will continue broad -spectrum antibiotics and advance diet cautiously. Patient was nauseated today from the contrast.
[2018-04-10 19:35] VITALS: BP 135/77; PULSE 84; RESP 20; TEMP 36.9; O2SAT 98
[2018-04-10] MEDS: GABAPENTIN 300 MG CAPSULE PO (20:09)
--- NOTE | 2018-04-10 20:35 | PC.NURSE ---
Addendum entered by Anthony Nelson R.N. 04/10/18 20:37: Original Note: Evening Shift CT scan of results obtained, notified, no new orders, continue IV ABX as ordered. Pt c/o IV spasm gave pt warm pack to help relieve symptoms during IV ABX infusion. No s/s of infiltration or phlebitis. Makes needs known, will continue to monitor for needs and safety.
[2018-04-11] VITALS (7 sets, daily range): BP systolic 107–137; BP diastolic 66–90; PULSE 56–82; RESP 16–18; TEMP 36.3–37.1; O2SAT 96–100
[2018-04-11] MEDS: PIPERACILLIN-TAZO 3.375 GM/50 ML FROZ.PIGGY IV ×4 (02:00→20:23)
[2018-04-11] MEDS: KETOROLAC 30 MG/ML VIAL IV ×2 (05:03→14:10)
[2018-04-11] MEDS: PANTOPRAZOLE 40 MG TABLET PO (05:35)
[2018-04-11] MEDS: DEXTROSE 5%-0.45% NS 1,000 ML 100 ML IV (08:10)
--- NOTE | 2018-04-11 08:23 | PM.PN.1 ---
Subjective Date Patient Seen: 04/11/18 Time Patient Seen: 08:23 Interval history: Right lower quadrant pain improved. Denies any fever chills. No nausea or vomiting although had some mild nausea with oral contrast for the CT yesterday. Reports flatus consistently. Passing some liquid stool following the CT scan yesterday. No dysuria or hematuria. Overall he is feeling much better today. Tolerated clear liquids last night. Exam Vital Signs (past 8 hours): - 04/11/18 05:52 Temperature 97.8 F Pulse Rate 56 L Respiratory Rate 17 Blood Pressure 112/66 Pulse Oximetry 96 Oxygen Delivery Method Room Air Oxygen Flow Rate 0 Narrative Exam Narrative: Well-nourished well-developed male in no acute distress. Alert oriented x3. He is ambulating about the room at the time of my visit. Remains afebrile hemodynamically stable without tachycardia and otherwise normal blood pressure. Good urine output Bowel function as above Chest clear auscultation Abdomen is soft and nondistended. He is focally tender in the right lower quadrant along the lateral rectus region but certainly with no guarding or rebound. I appreciate no masses. His incisions are all clean, dry, and intact without drainage or erythema. No significant ecchymoses. No evidence of hernias. Extremities show no clubbing or cyanosis Objective Labs Result Diagrams: 04/10/18 05:33 04/10/18 05:33 Labs: White blood cell count remains normal. Hemoglobin 11.9 which may be dilutional. He has no evidence of hemorrhage on the CT scan. Assessment & Plan Plan: Assessment/Plan Narrative: 42-year-old male with ongoing recovery 4 days after laparoscopic appendectomy for acute suppurative appendicitis. There is a small 1.4 cm fluid collection adjacent to the cecum on the CT scan yesterday which may or may not represent abscess. Regardless it is not amenable to drainage nor should it be an issue at this point. He is responding to intravenous Zosyn which we will continue for another 24 hr. Advance his diet to regular as tolerated. Continue to ambulate and shower ad peewee. Continue current pain regimen with Toradol and gabapentin as this appears quite effective. Saline lock his IV if he tolerates a regular diet today. Possibly home tomorrow on oral antibiotics. I discussed all this with him in detail. All questions were answered to his satisfaction, and he voiced understanding. Orders were written.
[2018-04-11] MEDS: GABAPENTIN 300 MG CAPSULE PO (20:24)
[2018-04-12] MEDS: PIPERACILLIN-TAZO 3.375 GM/50 ML FROZ.PIGGY IV ×3 (01:56→12:55)
[2018-04-12] MEDS: SODIUM CHLORIDE 0.9% FLUSH 10 ML IV ×3 (01:56→09:02)
[2018-04-12] MEDS: KETOROLAC 30 MG/ML VIAL IV (02:09)
[2018-04-12 05:40] VITALS: BP 129/87; PULSE 56; RESP 17; TEMP 36.6; O2SAT 98
[2018-04-12] MEDS: PANTOPRAZOLE 40 MG TABLET PO (06:12)
[2018-04-12] MEDS: GABAPENTIN 300 MG CAPSULE PO (09:01)
[2018-04-12 10:02] VITALS: BP 132/93; PULSE 64; RESP 16; TEMP 36.7; O2SAT 99
--- NOTE | 2018-04-12 12:01 | P.DS_ITS ---
History of Present Illness Date Patient Seen: 04/12/18 Time Patient Seen: 12:01 Chief complaint: ABD PAIN S/P APPENDECTOMY Narrative: 42-year-old male who underwent otherwise uncomplicated laparoscopic appendectomy for acute suppurative appendicitis was discharged home on postoperative day 1 earlier in the week but returned 2 days later to the emergency department with complaints of fever and progressive right lower quadrant abdominal pain. He was readmitted for IV fluid resuscitation, further evaluation, and intravenous antibiotics. Discharge Providers Date of admission: 04/09/18 19:19 Consults: 04/09/18 20:05 Consult to Discharge Planning Routine Comment: Discharge provider: Collin Zuniga MD Discharge Date: 04/12/18 Summary Discharge Diagnosis: Right lower quadrant pericecal abscess on CT scan requiring no intervention Postoperative abdominal pain following appendectomy with associated fever Acute suppurative appendicitis without rupture or abscess but evidence of microperforation histologically Laparoscopic appendectomy April 07, 2018 Otherwise healthy adult male with no pertinent past medical history or past surgical history prior to admission Hospital Course: Patient presented the emergency department as above and was admitted. His white blood cell count and electrolytes were completely normal. All other laboratory studies showed no significant issues. However, he did have a low-grade fever in tenderness in the right lower quadrant on examination. Incisions were healing nicely without evident complications. Because of his symptoms he was admitted for IV fluid resuscitation, monitoring, and intravenous antibiotics. Zosyn was instituted rather than Levaquin and Flagyl as he had received upon discharge around the time of his appendectomy. He seemed to respond well, but had no evidence of any other laboratory abnormalities including leukocytosis. CT scan of the abdomen and pelvis was obtained because of his unusual symptoms and findings. There was report of a 1.4 cm pericecal fluid collection representing either postoperative changes or possible small abscess. No intervention was required other than antibiotics. He continued to improve and responded the above therapy. He was eventually advanced to a regular diet which he was tolerating well at discharge. He has remained afebrile throughout hospitalization. Otherwise hemodynamically stable. He is ambulating without difficulty. His pain is now centrally resolved and he is requiring no further medications including opioid medication , gabapentin, and Toradol. He is well controlled with occasional Tylenol. He has had spontaneous return of normal bowel bladder function. Overall, he states he is feeling quite well and is therefore discharged home. He will follow up next week in the surgery clinic. However, he obviously understands to call or return sooner if he has any new issues as before. Status at Discharge Cognitive/behavioral status at discharge: Alert, oriented x3 Functional status at discharge: independent ambulation Overall status at discharge: patient is progressing back to baseline Time Spent with Patient Less than 30 minutes Exam Vital Signs (past 8 hours): - 04/12/18 05:40 04/12/18 10:02 Temperature 97.9 F 98.1 F Pulse Rate 56 L 64 Respiratory Rate 17 16 Blood Pressure 129/87 132/93 H Pulse Oximetry 98 99 Oxygen Delivery Method Room Air Oxygen Flow Rate 0 Narrative Exam Narrative: Well-nourished well-developed male sitting comfortably in a bedside chair in no acute distress. Alert oriented x3. He is actually working on his laptop computer at the time of my visit. Remains afebrile and hemodynamically stable with no tachycardia and normal blood pressure. Good urine output Passing flatus and bowel movement per the record Regular rate and rhythm. No crackles or wheezes on chest exam Abdomen soft, nondistended, no masses. He remains focally tender in the right lower quadrant at the site of the appendectomy but certainly without guarding or rebound. I appreciate no other abnormalities. His wounds are all clean, dry , and intact without erythema or drainage. He does have some mild residual ecchymosis near the umbilicus but no hematoma or seroma. No evidence of hernias. Extremities show no clubbing, cyanosis, or edema Objective Labs Result Diagrams: 04/10/18 05:33 04/10/18 05:33 Labs: CT scan findings are as above. Discharge Plan Discharge Plan Patient Disposition: Home Discharge Med Rec/Prescriptions Prescriptions: New amoxicillin-pot clavulanate [Augmentin] 875-125 mg tablet 1 tab PO BID Qty: 8 RF: 0 Continue sennosides [senna] 8.6 mg Tablet 8.6 mg PO BEDTIME Qty: 10 RF: 1 acetaminophen 325 mg Tablet 650 mg PO Q6HR PRN (Reason: As Needed For Fever/Mild Pain) Qty: 60 RF: 0 docusate sodium 100 mg Capsule 100 mg PO BID Qty: 20 RF: 1 oxycodone 5 mg Tablet 5 mg PO Q3HR PRN (Reason: Pain, Moderate (4-6)) Qty: 20 RF: 0 metronidazole [Flagyl] 500 mg tablet 500 mg PO TID Qty: 15 RF: 0 Discontinued levofloxacin [Levaquin] 750 mg tablet 750 mg PO DAILY Qty: 5 RF: 0 Follow up/Referrals: Collin Zuniga MD [Physician] - As previously scheduled Provider Discharge Instructions Diet: Diet as Tolerated Activity: No driving while taking opioid pain medication May walk as much as desired May climb stairs May ride in vehicle No lifting more than 20 lb until further notice Cold/Heat Therapy: May apply ice pack to incisions as needed for comfort Skin/Wound/Dressing Care Report to your healthcare provider any signs of infection, such as:: chills, fever, night sweats, increased pain, unusual drainage and unusual redness Dressing: No dressing necessary Other wound treatment: May shower Do not soak incision in bathtub or pool until further notice Discharge Data Attending Provider: Keith Castañeda Admit Date/Time: 04/09/18 19:19
--- NOTE | 2018-04-12 13:57 | PC.NURSE ---
Pt receiving last dose of IV Zosyn. Dose completed, IV removed. Pt's Spouse is at the bedside to take him home. Discharge instructions reviewed with Pt and Spouse. Pt to start PO abx this evening. Reviewed stroke education, lifting restriction, showering, and encouraged fluid intake. Pt out via w/c by [employer] to POV with Spouse and all belongings.
== END 2018-04-12 13:59 | disposition home or self-care (01) | DRG 372 ==
LOC: ED 19:18 → AC 04-10 09:26
PROVIDERS: Admitting Provider Specialist; Emergency Provider Emergency Medicine; Referring Provider Surgery; Visit Provider Specialist
DX: K65.1 Peritoneal abscess (principal); T81.43XA Infection following a procedure, organ and space surgical site, initial encounter
CPT/HCPCS: 36415; 36591; 74022; 74177; 80053; 83605; 83690; 84145; 85025; 85610; 85730; 87040; 96361; 96374; 96375; 99283; 99284; G0378; J1170; J1885; J2405; J2543; Q9967

== ENCOUNTER → 2018-12-05 17:24 | Outpatient (CLI) | payer OTHER, SELFPAY | PROVIDERS: PCP Internal Medicine | DX: Z23 Encounter for immunization (principal) | CPT/HCPCS: 90471; 90686 ==

== ENCOUNTER → 2019-01-22 09:13 | Outpatient (CLI) | payer OTHER, SELFPAY ==
[2019-01-22 09:45] LABS: Add Manual Diff / Slide Review NO; Basophils Absolute Auto 0 /uL (0-100); Eosinophils Absolute Auto 200 /uL (0-450); Eosinophils Percent Auto 4.6 % (2-4); Hematocrit 43.4 % (41-53); Hemoglobin 15.1 g/dL (13.5-17.5); Lymphocytes Absolute Auto 1100 /uL (1100-4500); Lymphocytes Percent Auto 24.9 % (25-40); Mean Corpuscular HGB Conc 34.9 % (30-36); Mean Corpuscular Hemoglobin 31.3 PG (26-34); Mean Corpuscular Volume 89.8 fL (80-100); Monocytes Absolute Auto 400 /uL (0-900); Monocytes Percent Auto 10.1 % (3-14); Neutrophils Absolute Auto 2600 /uL (1500-7000); Neutrophils Percent Auto 59.4 % (50-75); Platelet Count 280 X10^3/uL (150-400); Red Blood Cell Count 4.84 X10^6/uL (4.5-5.9); Red Cell Distribution Width 12.8 % (11.6-14.8); White Blood Cell Count 4.4 X10^3/uL (4.5-11.0)
[2019-01-22 09:57] LABS: HEMOLYSIS < 15 (0-50)
[2019-01-22 10:02] LABS: Alanine Aminotransferase 26 IU/L (<50); Albumin 4.7 g/dL (3.5-5.0); Albumin Globulin Ratio 1.4 (1.0-2.8); Alkaline Phosphatase 76 U/L (38-126); Aspartate Aminotransferase 26 IU/L (17-59); Bilirubin Total 0.7 mg/dL (0.2-1.3); Blood Urea Nitrogen 14 mg/dL (9-20); Calcium 9.5 mg/dL (8.4-10.2); Carbon Dioxide 30 mmol/L (22-32); Chloride 102 mmol/L (98-107); Creatine Kinase 55 U/L (55-170); Estimated Glomerular Filt Rate > 60.0 mL/min (>60); Globulin 3.4 g/dL (1.7-4.1); Glucose 93 mg/dL (70-100); Potassium 3.8 mmol/L (3.4-5.1); Sodium 140 mmol/L (137-145); Total Protein 8.1 g/dL (6.3-8.2)
[2019-01-22 10:22] LABS: C-Reactive Protein Quant < 0.5 mg/dL (<1.0)
[2019-01-22 10:27] LABS: Erythrocyte Sedimentation Rate 2 MM/HR (0-15)
[2019-01-22 10:49] LABS: TSH w/ Reflex to FT4 1.77 uIU/mL (0.47-4.68)
[2019-01-22 13:46] LABS: Rheumatoid Factor < 8.6 IU/mL (<12.0)
== END ==
PROVIDERS: PCP Student in an Organized Health Care Education/Training Program; Visit Provider Student in an Organized Health Care Education/Training Program
DX: M89.8X9 Other specified disorders of bone, unspecified site (principal); R07.9 Chest pain, unspecified; R55 Syncope and collapse; M19.90 Unspecified osteoarthritis, unspecified site
CPT/HCPCS: 36415; 80053; 82550; 84443; 85025; 85651; 86140; 86235; 86430

== ENCOUNTER → 2019-02-04 07:39 | Outpatient (CLI) | payer OTHER, SELFPAY ==
--- NOTE | 2019-02-04 07:40 | DI.ECHO.S_ITS ---
[facility] +---------+ : : [address] : [place] : : : : [id number] : : : : Phone: [phone]---------+ Echocardiogram Report + + :Name: ABDULAZIZ BOYLE Study Date: 02/04/2019 Height: 69 in : :[facility] Weight: 182 lb : : Gender: Male BSA: 2.0 m2 : :: 1975 Age: 43 yrs BP: 128/86 mmHg: :Reason For Study: Presyncope : : Performed By: [facility] Staff : :Referring: MONTSERRAT GONZALES : + + Interpretation Summary The left ventricle is normal in size. The ejection fraction is estimated to be 60-65%. The right ventricle is normal in size and function. No significant valvular pathology seen. No significant structural heart disease seen. Procedure: A two-dimensional transthoracic echocardiogram with color flow and Doppler was performed. The study quality was technically adequate. There is no prior echocardiogram noted for this patient. The patient was in normal sinus rhythm during the exam. The heart rate ranged between 91-102 bpm during the study. Left Ventricle: The left ventricle is normal in size. There is normal left ventricular wall thickness. There is no thrombus. A false chord is noted (normal variant). Left ventricular systolic function is normal. The ejection fraction is estimated to be 60-65%. Left ventricular wall motion is normal. MV E/A: 1.1 Med Peak E' Ventura: 7.8 cm/sec E/E' med: 11.7. Right Ventricle: The right ventricle is normal in size and function. Atria: The left atrial size is normal. Right atrial size is normal. The interatrial septum is intact with no evidence for an atrial septal defect. Mitral Valve: The mitral valve is normal in structure and function. There is no mitral regurgitation noted. Aortic Valve: The aortic valve is trileaflet. The aortic valve opens well. There is no aortic valve stenosis. No aortic regurgitation is present. Tricuspid Valve: The tricuspid valve is normal in structure and function. There is trace tricuspid regurgitation. Pulmonary artery pressures cannot be estimated because of the lack of a measurable TR jet velocity. Pulmonic Valve: The pulmonic valve is normal in structure and function. There is trace pulmonic regurgitation. Great Vessels: The aortic root is normal size. The dimensions of the ascending aorta are normal. The pulmonary artery is normal size. The IVC is of normal diameter and collapses greater than 50% with a sniff. This suggests a low right atrial pressure of 3 mm Hg. Pericardium/ Pleura There is no pericardial effusion. There is no pleural effusion. MMode/2D Measurements & Calculations LVIDd: 4.6 cm LVOT diam: 2.0 cm LVIDs: 2.8 cm Ao root diam: 3.2 cm FS: 38.9 % Aortic Jxn: 2.9 cm EPSS: 0.41 cm IVSd: 0.95 cm LVPWd: 0.94 cm LV lay. diameter/BSA (cm/m^2): 2.3 LV sys. diameter/BSA (cm/m^2): 1.4 LA A2 area: 12.4 cm2 RA long axis: 4.1 cm LA A4 area: 13.6 cm2 RA area: 10.5 cm2 LA length (vol): 4.1 cm RA vol: 22.9 ml LA vol: 34.5 ml RA : 11.6 ml/m2 LA vol index: 17.4 ml/m2 TAPSE: 2.0 cm Doppler Measurements & Calculations Ao V2 max: 118.4 cm/sec LVOT Max Ventura: 112.8 cm/sec Ao V2 mean: 76.4 cm/sec LV V1 max P.1 mmHg Ao max P.6 mmHg LV V1 VTI: 19.1 cm Ao mean P.8 mmHg LINA(I,D): 3.0 cm2 Ao V2 VTI: 20.3 cm LINA(V,D): 3.1 cm2 sev ratio: 0.94 LINA indexed to BSA (cm^2/m^2): 1.5 MV E max ventura: 91.8 cm/sec PA V2 max: 84.5 cm/sec MV A max ventura: 80.4 cm/sec PA V2 mean: 60.4 cm/sec MV E/A: 1.1 PA mean P.7 mmHg Med Peak E' Ventura: 7.8 cm/sec PA Accel Time: 0.11 sec E/E' med: 11.7 Lat Peak E' Ventura: 13.9 cm/sec E/E' lat: 6.6 E/e' average: 9.2 MV dec time: 0.13 sec SV(LVOT): 61.6 ml Reading Physician:11:37 AM
== END ==
PROVIDERS: PCP Student in an Organized Health Care Education/Training Program; Visit Provider Student in an Organized Health Care Education/Training Program
DX: R55 Syncope and collapse (principal); R07.9 Chest pain, unspecified; M89.8X9 Other specified disorders of bone, unspecified site
CPT/HCPCS: 93306

== ENCOUNTER → 2019-02-13 12:00 | Outpatient (CLI) | payer OTHER, SELFPAY ==
--- NOTE | 2019-02-28 16:05 | PM.CARDMON.1 ---
Director Appointment Report Referral & Results Date Patient Seen: 02/13/19 Requesting provider: Adrián Murry Indication: Chest pain Duration of monitoring (days): 10 Diary information: Therefore patient triggered events and no patient diary entries Patient triggered events were all associated with sinus rhythm 66-110 beats per minute Data: Minimum heart rate identified was 47 beats per minute at 04:22 on 02/14/2019 Maximum heart rate was 179 beats per minute at 19:55 on 02/14/2019 Less than 1% of identified beats were either ventricular or supraventricular ectopic in origin Impression: Normal 10 day equipment monitor phototypesetting
== END ==
PROVIDERS: PCP Student in an Organized Health Care Education/Training Program; Visit Provider Student in an Organized Health Care Education/Training Program
DX: R07.9 Chest pain, unspecified (principal)
CPT/HCPCS: 0296T; 0298T

== ENCOUNTER → 2019-02-17 07:36 | Outpatient (CLI) | payer OTHER, SELFPAY ==
--- NOTE | 2019-02-17 07:38 | DI.RAD.S_ITS ---
PROCEDURE: XR FEMUR LT MIN 2V INDICATIONS: Bone pain, eval for Paget's TECHNIQUE: 4 views of the femur were acquired. COMPARISON: Same day right femur radiographs. FINDINGS: Bones: No fractures or dislocations. No suspicious bony lesions. No abnormal bowing of the femur or thickening of the trabeculae. Soft tissues: No suspicious soft tissue calcifications or masses. IMPRESSION: Negative exam. Dictated by: Jae Reed M.D. on 02/17/2019 at 8:33 Approved by: Jae Reed M.D. on 02/17/2019 at 8:36
--- NOTE | 2019-02-17 07:38 | DI.RAD.S_ITS ---
PROCEDURE: XR FEMUR RT MIN 2V INDICATIONS: Bone pain, eval for Paget's TECHNIQUE: 4 views of the femur were acquired. COMPARISON: Same day left femur radiographs. FINDINGS: Bones: No fractures or dislocations. No suspicious bony lesions. No abnormal bowing of the femur or thickening of the trabeculae. Small bone island in the distal shaft and femoral neck. Soft tissues: No suspicious soft tissue calcifications or masses. IMPRESSION: Negative exam. Dictated by: Jae Reed M.D. on 02/17/2019 at 8:36 Approved by: Jae Reed M.D. on 02/17/2019 at 8:37
== END ==
PROVIDERS: PCP Student in an Organized Health Care Education/Training Program; Visit Provider Student in an Organized Health Care Education/Training Program
DX: M89.8X9 Other specified disorders of bone, unspecified site (principal); R55 Syncope and collapse; R09.89 Other specified symptoms and signs involving the circulatory and respiratory systems
CPT/HCPCS: 73552

== ENCOUNTER → 2019-02-18 12:20 | Outpatient (CLI) | payer OTHER, SELFPAY ==
[2019-02-18 13:36] LABS: Cortisol AM (Before 10AM) 6.58 ug/dL (4.46-22.7)
[2019-02-20 16:38] LABS: Parathyroid Hormone Int 20 pg/mL (14-64)
[2019-02-20 21:21] LABS: Albumin 4.4 g/dL (3.8-4.8); Alpha 1 Globulin 0.2 g/dL (0.2-0.3); Alpha 2 Globulin 0.6 g/dL (0.5-0.9); Beta 1 Globulin 0.5 g/dL (0.4-0.6); Gamma Globulin 1.4 g/dL (0.8-1.7); Protein, Total 7.5 g/dL (6.1-8.1)
== END ==
PROVIDERS: PCP Student in an Organized Health Care Education/Training Program; Visit Provider Student in an Organized Health Care Education/Training Program
DX: M89.8X9 Other specified disorders of bone, unspecified site (principal); R09.89 Other specified symptoms and signs involving the circulatory and respiratory systems; R55 Syncope and collapse
CPT/HCPCS: 36415; 82306; 82533; 83970; 84155; 84165

== ENCOUNTER → 2019-02-20 08:00 | Outpatient (CLI) | payer OTHER, SELFPAY ==
[2019-02-20 08:56] LABS: Collection Time Urine 24 Hours; Protein (Total) Urine Random 10 mg/dL (0-12); Total Protein 24 Hour Urine 230 mg/day (42-225); Total Volume Urine 2300 mL
[2019-03-04 08:34] LABS: Total Volume 2300 mL; Urine, Metanephrine 108 mcg/24 h (58-203); Urine, Normetanephrine 309 mcg/24 h (88-649)
[2019-03-04 13:45] LABS: Creatinine, 24 Urine 1.42 g/24 h (0.50-2.15); Total Catecholamines 41 mcg/24 h (26-121); Total Volume: 2300 mL
== END ==
PROVIDERS: PCP Student in an Organized Health Care Education/Training Program; Visit Provider Student in an Organized Health Care Education/Training Program
DX: M89.8X9 Other specified disorders of bone, unspecified site (principal); R09.89 Other specified symptoms and signs involving the circulatory and respiratory systems; R55 Syncope and collapse
CPT/HCPCS: 82384; 83835; 84156

== ENCOUNTER → 2019-02-21 07:51 | Outpatient (CLI) | payer OTHER, SELFPAY ==
[2019-02-21 10:09] LABS: Cortisol AM (Before 10AM) 1.02 ug/dL (4.46-22.7)
== END ==
PROVIDERS: PCP Student in an Organized Health Care Education/Training Program; Visit Provider Student in an Organized Health Care Education/Training Program
DX: M89.8X9 Other specified disorders of bone, unspecified site (principal); R55 Syncope and collapse
CPT/HCPCS: 36415; 82533

== ENCOUNTER → 2019-12-12 02:08 | Outpatient (CLI) | payer OTHER, SELFPAY | PROVIDERS: PCP Student in an Organized Health Care Education/Training Program; Referring Provider Internal Medicine; Visit Provider Internal Medicine | DX: Z23 Encounter for immunization (principal) | CPT/HCPCS: 90471; 90686 ==

== ENCOUNTER → 2020-02-16 11:46 | Outpatient (CLI) | payer OTHER, SELFPAY ==
[2020-02-16 12:35] LABS: COVID19 -Nasal RAPID Negative (Negative)
== END ==
PROVIDERS: PCP Student in an Organized Health Care Education/Training Program; Visit Provider Physician Assistant
DX: Z11.59 Encounter for screening for other viral diseases (principal)
CPT/HCPCS: 87635

== ENCOUNTER → 2020-02-17 13:35 | Outpatient (CLI) | payer OTHER, SELFPAY ==
[2020-02-17 15:47] LABS: COVID19 -Nasal RAPID Negative (Negative)
== END ==
PROVIDERS: PCP Student in an Organized Health Care Education/Training Program; Visit Provider Physician Assistant
DX: Z11.59 Encounter for screening for other viral diseases (principal)
CPT/HCPCS: 87635

== ENCOUNTER → 2020-03-18 12:17 | Outpatient (CLI) | payer OTHER, SELFPAY ==
[2020-03-18] MEDS: COVID-19 VACC(MODERNA-1)/PF 100 MCG/0.5 ML VIAL IM (12:20)
== END ==
PROVIDERS: PCP Student in an Organized Health Care Education/Training Program; Visit Provider Internal Medicine
DX: Z23 Encounter for immunization (principal)
CPT/HCPCS: 0011A; 91301

== ENCOUNTER → 2020-04-13 16:53 | Outpatient (CLI) | payer OTHER, SELFPAY ==
[2020-04-13] MEDS: COVID-19 VACC #2, MRNA(MOD) 100 MCG/0.5 ML VIAL IM (16:56)
== END ==
PROVIDERS: PCP Student in an Organized Health Care Education/Training Program; Visit Provider Internal Medicine
DX: Z23 Encounter for immunization (principal)
CPT/HCPCS: 0012A; 91301

== ENCOUNTER → 2020-12-14 19:14 | Outpatient (CLI) | payer OTHER, SELFPAY | PROVIDERS: PCP Student in an Organized Health Care Education/Training Program; Referring Provider Internal Medicine; Visit Provider Internal Medicine | DX: Z23 Encounter for immunization (principal) | CPT/HCPCS: 90471; 90686 ==

== ENCOUNTER → 2020-12-27 14:51 | Outpatient (CLI) | payer OTHER, SELFPAY ==
[2020-12-27 18:13] LABS: COVID19 -Nasal RAPID Negative (Negative)
== END ==
PROVIDERS: PCP Student in an Organized Health Care Education/Training Program; Referring Provider Pediatrics; Visit Provider Pediatrics
DX: Z20.822 Contact with and (suspected) exposure to COVID-19 (principal); R11.10 Vomiting, unspecified
CPT/HCPCS: 87635